=== PATIENT | male | born 1965 | race Caucasian/White ===

== ENCOUNTER 2017-03-12 01:20 | Emergency (ER) | payer SELFPAY ==
--- NOTE | 2017-03-12 02:02 | ERPHSYRPT ---
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 - no change on exam today; brought by law enforcement for clearance today; Timing/Duration: today Associated Symptoms: denies symptoms Allergies/Adverse Reactions: iodine Allergy (Verified 03/08/14 16:06) Shellfish *RETIRED-11/14/12 [Shellfish] Allergy (Verified 03/08/14 16:06) Home Medications: Lorazepam [Ativan] 2 mg PO TIDPRN PRN 08/05/12 [History] Pantoprazole 20 mg [Protonix 20MG Tablet] 20 mg PO DAILY 09/15/12 [History] Famotidine 20 mg [Pepcid 20 MG] 20 mg PO HS 01/01/14 [History] Fluoxetine HCl [Prozac] 20 mg PO DAILY 01/01/14 [History] Hx Tetanus, Diphtheria Vaccination/Date Given: Yes Hx Influenza Vaccination/Date Given: Yes Hx Pneumococcal Vaccination/Date Given: Yes - Review of Systems Constitutional: No Fever, No Chills Eyes: No Symptoms Ears, Nose, & Throat: No Symptoms Respiratory: No Cough, No Dyspnea Cardiac: No Chest Pain, No Edema, No Syncope Abdominal/Gastrointestinal: No Abdominal Pain, No Nausea, No Vomiting, No Diarrhea Genitourinary Symptoms: No Dysuria Musculoskeletal: No Back Pain, No Neck Pain Skin: No Rash Neurological: No Dizziness, No Focal Weakness, No Sensory Changes Psychological: No Symptoms Endocrine: No Symptoms All Other Systems: Reviewed and Negative - Past Medical History Pertinent Past Medical History: Yes Neurological History: No Pertinent History ENT History: No Pertinent History Cardiac History: No Pertinent History Respiratory History: No Pertinent History Endocrine Medical History: No Pertinent History Musculoskeletal History: No Pertinent History GI Medical History: GI Bleed History: No Pertinent History Psycho-Social History: Anxiety, Depression Male Reproductive Disorders: No Pertinent History Other Medical History: 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 - Past Surgical History Past Surgical History: Yes Neuro Surgical History: No Pertinent History Cardiac: No Pertinent History Respiratory: No Pertinent History Gastrointestinal: Cholecystectomy Genitourinary: No Pertinent History Musculoskeletal: No Pertinent History Male Surgical History: No Pertinent History Other Surgical History: knee scope; recent trach placement from ulcers noted on throat - Social History Smoking Status: Never smoker Exposure to second hand smoke: No Drug Use: none Patient Lives Alone: Yes - Nursing Vital Signs Nursing Vital Signs: Initial Vital Signs Temperature 98 F 03/12/17 02:18 Pulse Rate 100 H 03/12/17 02:18 Respiratory Rate 16 03/12/17 02:18 Blood Pressure 140/86 03/12/17 02:18 O2 Sat by Pulse Oximetry 98 03/12/17 02:18 Pain Scale Pain Intensity 0 - Physical Exam General Appearance: no apparent distress, alert Eye Exam: PERRL/EOMI, eyes nml inspection Ears, Nose, Throat Exam: normal ENT inspection, TMs normal, pharynx normal, moist mucous membranes Neck Exam: normal inspection, non-tender, supple, full range of motion Respiratory Exam: normal breath sounds, lungs clear, No respiratory distress Cardiovascular Exam: regular rate/rhythm, normal heart sounds, normal peripheral pulses Gastrointestinal/Abdomen Exam: soft, normal bowel sounds, No tenderness, No mass Rectal Exam: normal exam, normal rectal tone Back Exam: normal inspection, normal range of motion, No CVA tenderness, No vertebral tenderness Extremity Exam: normal inspection, normal range of motion, pelvis stable Neurologic Exam: alert, oriented x 3, cooperative, normal mood/affect, nml cerebellar function, nml station & gait, sensation nml, motor deficits (old residual left sided weakness) Skin Exam: normal color, warm, dry, No rash Lymphatic Exam: No adenopathy SpO2 Interpretation: normal Oxygen Delivery: Room Air - Course Nursing assessment & vital signs reviewed: Yes EKG Interpreted by Me: Sinus Rhythm, Non-specific ST Changes Ordered Tests: Active Orders 24 hr Category Date Time Status Clean Catch Urine Specimen STAT Care 03/12/17 02:26 Active EKG-ER Only STAT Care 03/12/17 01:50 Active ACETAMINOPHEN Stat Lab 03/12/17 02:10 Completed CBC W DIFF Stat Lab 03/12/17 02:10 Completed CMP Stat Lab 03/12/17 02:10 Completed ETHYL ALCOHOL Stat Lab 03/12/17 02:10 Completed Occult Blood,Stool Other Stat Lab 03/12/17 03:13 Ordered SALICYLATE Stat Lab 03/12/17 02:10 Completed TROPONIN Q3H Lab 03/12/17 02:10 Completed TROPONIN Q3H Lab 03/12/17 05:00 Ordered TROPONIN Q3H Lab 03/12/17 08:00 Ordered TROPONIN Q3H Lab 03/12/17 11:00 Ordered TROPONIN Q3H Lab 03/12/17 14:00 Ordered UA W/RFX UR CULTURE Stat Lab 03/12/17 02:00 Completed Urine Triage Profile Stat Lab 03/12/17 02:00 Completed Lab/Rad Data: Laboratory Result Diagrams 03/12/17 02:10 03/12/17 02:10 Laboratory Results 03/12/17 03/12/17 03/12/17 Range/Units 02:10 02:10 02:10 WBC (4.0-10.5) K/mm3 RBC (4.1-5.6) M/mm3 Hgb (12.5-18.0) gm/dl Hct (42-50) % MCV (78-100) fl MCH (26-32) pg MCHC (32-36) g/dl RDW (11.5-14.0) % Plt Count (150-450) K/mm3 MPV (6-9.5) fl Gran % (36.0-66.0) % Lymphocytes % (24.0-44.0) % Monocytes % (0.0-12.0) % Eosinophils % (0.00-5.0) % Basophils % (0.0-0.4) % Basophils # (0-0.4) Sodium (136-145) mEq/L Potassium (3.5-5.1) mEq/L Chloride (98-107) mEq/L Carbon Dioxide (21-32) mEq/L Anion Gap (5-15) MEQ/L BUN (9-20) mg/dL Creatinine (0.55-1.30) mg/dl Estimated GFR ML/MIN Glucose (70-110) MG/DL Calcium (8.5-10.1) mg/dL Total Bilirubin (0.2-1.0) mg/dL AST (15-37) U/L ALT (12-78) U/L Alkaline Phosphatase (46-116) U/L Troponin I < 0.017 (0.000-0.056) ng/ml Serum Total Protein (6.4-8.2) gm/dL Albumin (3.4-5.0) g/dL Ur Collection Type Urine Color (YELLOW) Urine Appearance (CLEAR) Urine pH (5-6) Ur Specific [place] (1.005-1.025) Urine Protein (Negative) Urine Ketones (NEGATIVE) Urine Blood (0-5) Steve/ul Urine Nitrite (NEGATIVE) Urine Bilirubin (NEGATIVE) Urine Urobilinogen (0-1) mg/dL Ur Leukocyte Esterase (NEGATIVE) Urine Glucose (NEGATIVE) mg/dL Salicylates < 2.8 L (2.8-20.0) mg/dl Urine Opiates Level (NEGATIVE) Ur Methadone (NEGATIVE) Acetaminophen < 2.0 L (10-30) ug/ml Urine Barbiturates (NEGATIVE) Ur Phencyclidine (PCP) (NEGATIVE) Urine Amphetamine (NEGATIVE) U Benzodiazepine Level (NEGATIVE) Urine Cocaine (NEGATIVE) Urine Marijuana (THC) (NEGATIVE) Ethyl Alcohol (0.00-0.01) % Specimen Received 03/12/17 03/12/17 03/12/17 Range/Units 02:10 02:10 02:10 WBC 3.7 L (4.0-10.5) K/mm3 RBC 3.70 L (4.1-5.6) M/mm3 Hgb 10.2 L (12.5-18.0) gm/dl Hct 32.1 L (42-50) % MCV 86.8 (78-100) fl MCH 27.5 (26-32) pg MCHC 31.8 L (32-36) g/dl RDW 19.7 H (11.5-14.0) % Plt Count 103 L (150-450) K/mm3 MPV 11.7 H (6-9.5) fl Gran % 46.5 (36.0-66.0) % Lymphocytes % 28.8 (24.0-44.0) % Monocytes % 19.6 H (0.0-12.0) % Eosinophils % 4.3 (0.00-5.0) % Basophils % 0.8 (0.0-0.4) % Basophils # 0.03 (0-0.4) Sodium 141 (136-145) mEq/L Potassium 3.8 (3.5-5.1) mEq/L Chloride 101 (98-107) mEq/L Carbon Dioxide 25.9 (21-32) mEq/L Anion Gap 17.4 H (5-15) MEQ/L BUN 4 L (9-20) mg/dL Creatinine 0.76 (0.55-1.30) mg/dl Estimated GFR > 60 ML/MIN Glucose 106 (70-110) MG/DL Calcium 8.1 L (8.5-10.1) mg/dL Total Bilirubin 0.40 (0.2-1.0) mg/dL AST 145 H (15-37) U/L ALT 57 (12-78) U/L Alkaline Phosphatase 120 H (46-116) U/L Troponin I (0.000-0.056) ng/ml Serum Total Protein 6.9 (6.4-8.2) gm/dL Albumin 3.4 (3.4-5.0) g/dL Ur Collection Type Urine Color (YELLOW) Urine Appearance (CLEAR) Urine pH (5-6) Ur Specific [place] (1.005-1.025) Urine Protein (Negative) Urine Ketones (NEGATIVE) Urine Blood (0-5) Steve/ul Urine Nitrite (NEGATIVE) Urine Bilirubin (NEGATIVE) Urine Urobilinogen (0-1) mg/dL Ur Leukocyte Esterase (NEGATIVE) Urine Glucose (NEGATIVE) mg/dL Salicylates (2.8-20.0) mg/dl Urine Opiates Level (NEGATIVE) Ur Methadone (NEGATIVE) Acetaminophen (10-30) ug/ml Urine Barbiturates (NEGATIVE) Ur Phencyclidine (PCP) (NEGATIVE) Urine Amphetamine (NEGATIVE) U Benzodiazepine Level (NEGATIVE) Urine Cocaine (NEGATIVE) Urine Marijuana (THC) (NEGATIVE) Ethyl Alcohol 0.384 H* (0.00-0.01) % Specimen Received 03/12/17 03/12/17 Range/Units 02:00 02:00 WBC (4.0-10.5) K/mm3 RBC (4.1-5.6) M/mm3 Hgb (12.5-18.0) gm/dl Hct (42-50) % MCV (78-100) fl MCH (26-32) pg MCHC (32-36) g/dl RDW (11.5-14.0) % Plt Count (150-450) K/mm3 MPV (6-9.5) fl Gran % (36.0-66.0) % Lymphocytes % (24.0-44.0) % Monocytes % (0.0-12.0) % Eosinophils % (0.00-5.0) % Basophils % (0.0-0.4) % Basophils # (0-0.4) Sodium (136-145) mEq/L Potassium (3.5-5.1) mEq/L Chloride (98-107) mEq/L Carbon Dioxide (21-32) mEq/L Anion Gap (5-15) MEQ/L BUN (9-20) mg/dL Creatinine (0.55-1.30) mg/dl Estimated GFR ML/MIN Glucose (70-110) MG/DL Calcium (8.5-10.1) mg/dL Total Bilirubin (0.2-1.0) mg/dL AST (15-37) U/L ALT (12-78) U/L Alkaline Phosphatase (46-116) U/L Troponin I (0.000-0.056) ng/ml Serum Total Protein (6.4-8.2) gm/dL Albumin (3.4-5.0) g/dL Ur Collection Type CLEAN CATCH Urine Color YELLOW (YELLOW) Urine Appearance CLEAR (CLEAR) Urine pH 5.5 (5-6) Ur Specific [place] 1.005 (1.005-1.025) Urine Protein NEGATIVE (Negative) Urine Ketones NEGATIVE (NEGATIVE) Urine Blood NEGATIVE (0-5) Steve/ul Urine Nitrite NEGATIVE (NEGATIVE) Urine Bilirubin NEGATIVE (NEGATIVE) Urine Urobilinogen NORMAL (0-1) mg/dL Ur Leukocyte Esterase NEGATIVE (NEGATIVE) Urine Glucose NEGATIVE (NEGATIVE) mg/dL Salicylates (2.8-20.0) mg/dl Urine Opiates Level NEG. (NEGATIVE) Ur Methadone NEG. (NEGATIVE) Acetaminophen (10-30) ug/ml Urine Barbiturates NEG. (NEGATIVE) Ur Phencyclidine (PCP) NEG. (NEGATIVE) Urine Amphetamine NEG. (NEGATIVE) U Benzodiazepine Level NEG. (NEGATIVE) Urine Cocaine NEG. (NEGATIVE) Urine Marijuana (THC) NEG. (NEGATIVE) Ethyl Alcohol (0.00-0.01) % Specimen Received 03/12/17:0200 - Progress Progress: improved, re-examined Progress Note: 03/12/17 03:09 pt states hbg is usually around 10. Counseled pt/family regarding: lab results, diagnosis, need for follow-up - Departure Time of Disposition: 03:14 Departure Disposition: Correction/Detention Clinical Impression: Elevated alanine aminotransferase (ALT) level, residuals from CVA stable , Chronic anemia Condition: Good Critical Care Time: No Referrals: GEETA TURNER [Primary Care Provider] - Instructions: Alcohol Abuse and Alcoholism Additional Instructions: followup with your Dr for elevated liver enzyme tests and low blood count, and elevated BP/
[2017-03-12 02:19] LABS: BASOPHIL % 0.8 % (0.0-0.4); Eosinophil % 4.3 % (0.00-5.0); Granulocytes % 46.5 % (36.0-66.0); Lymphocytes % 28.8 % (24.0-44.0); Mean Cell Volume 86.8 fl (78-100); Mean Corpuscular Hemoglobin 27.5 pg (26-32); Mean Platelet Volume 11.7 fl (6-9.5); Monocytes % 19.6 % (0.0-12.0); Platelet Count 103 K/mm3 (150-450); Red Cell Distribution Width 19.7 % (11.5-14.0); White Blood Count 3.7 K/mm3 (4.0-10.5)
[2017-03-12 02:23] LABS: ADD URINE CULTURE? NO (NO); Bilirubin NEGATIVE (NEGATIVE); Blood NEGATIVE Ery/ul (0-5); COMPLETE URINE MICROSCOPIC? NO; Collection Type CLEAN CATCH; Glucose NEGATIVE (NEGATIVE); Leukocyte Esterase NEGATIVE (NEGATIVE)
[2017-03-12 02:24] VITALS: O2SAT 98
[2017-03-12 02:39] LABS: ALBUMIN 3.4 g/dL (3.4-5.0); ALKALINE PHOSPHATASE 120 U/L (46-116); ANION GAP 17.4 MEQ/L (5-15); BLOOD UREA NITROGEN 4 mg/dL (9-20); CHLORIDE 101 mEq/L (98-107); Carbon Dioxide 25.9 mEq/L (21-32); Glucose 106 MG/DL (70-110); Potassium 3.8 mEq/L (3.5-5.1); SGOT/AST 145 U/L (15-37); SGPT/ALT 57 U/L (12-78); SODIUM 141 mEq/L (136-145); Total Protein 6.9 gm/dL (6.4-8.2)
[2017-03-12 03:30] VITALS: BP 128/78; PULSE 92
== END 2017-03-12 03:31 | disposition home or self-care (01) ==
LOC: ED 01:20
DX: R74.0 Nonspecific elevation of levels of transaminase and lactic acid dehydrogenase [LDH] (principal); I63.8 Other cerebral infarction; D64.89 Other specified anemias
CPT/HCPCS: 36415; 80053; 80307; 81002; 82272; 84484; 85025; 93005; 99283; G0481

== ENCOUNTER 2017-08-25 05:56 | Day surgery (SDC) | payer OTHER ==
[2017-08-25] MEDS ORDERED: DIPRIVAN 200 MG/20 ML IV ONE (05:57)
[2017-08-25] MEDS ORDERED: Versed 2 MG/2 ML Injection IV ONE (05:57)
[2017-08-25] MEDS ORDERED: Pepcid 20 MG VIAL IV ONE ×2 (06:28→06:32)
[2017-08-25] MEDS ORDERED: Reglan 10 MG/2 ML ONE (06:28)
[2017-08-25] MEDS ORDERED: Lactated Ringers 1,000 ML IV ONE (06:28)
[2017-08-25] MEDS ORDERED: Reglan 10 MG/2 ML IV ONE (06:32)
[2017-08-25 06:39] VITALS: O2SAT 98
[2017-08-25] MEDS ORDERED: Lactated Ringers 1,000 ML IV SCH (07:00)
[2017-08-25 09:30] VITALS: BP 131/72; PULSE 88
--- NOTE | 2017-08-25 11:41 | OP ---
SURGERY DATE/TIME: 08/25/2017 0725 PREOPERATIVE DIAGNOSIS: Low abdominal pain and rectal bleeding. Family history of colon cancer. POSTOPERATIVE DIAGNOSIS: Rectal cancer, multiple polyps to the left side of the colon. PROCEDURE: Colonoscopy with biopsy and tattooing of the colon. SURGEON: Dr. Chapman. ANESTHESIA: MAC. Medications given by anesthesia department. HISTORY: The patient is a 52 year-old white male patient who reports for the past several months he has been having problems with rectal bleeding that has gotten worse over time. He reports there has been some abdominal pain in low area and pain with bowel movements. He also reports that his father had colon polyps and his mother had colon cancer. The patient was felt the need to have endoscopic evaluation. He was appraised of the risks of the procedure including the risk of perforation, phlebitis, untoward reaction to medication, bleeding and missed lesions. The patient verbalized his understanding and desired to have the procedure performed. DESCRIPTION OF PROCEDURE: The patient was given the medications by the anesthesia department. He had continuous pulse oximetry, ECG monitoring, intermittent blood pressure monitoring and tidal CO2 monitoring during the examination. He was placed in the left lateral decubitus position. A digital rectal examination was performed and revealed a firm, ulcerated mass which was palpable approximately right at the anal verge measuring approximately 5 cm in diameter. The anal sphincter tone was felt to be normal. The flexible Olympus pediatric colonoscope was used to intubate the rectum. A view of the colon was developed sequentially to the cecum. Upon insertion and withdrawal there was noted multiple very large polyps throughout the left side of the colon. We observed carefully the colon beyond this area and we tattooed the area of the most proximal polyp. The area above that being clear to the cecum, the area below having multiple polyps as mentioned pedunculated and very large in nature. Biopsies were obtained from the area that was felt to be rectal cancer. The other polyps appeared to be probable villous adenomas and it was felt that the patient would likely need surgery, in fact probably a hemicolectomy of the left side. We therefore did not progress to try to remove the rest of the very large polyps. The scope was removed from the patient who tolerated the procedure well and was sent back to OP recovery in good condition. Bleeding was noted to be minimal.
== END 2017-08-25 09:57 | disposition home or self-care (01) ==
LOC: SDC 05:56
PROVIDERS: ATTEND Family Medicine
PROC: 0DBG8ZX Excision of Left Large Intestine, Via Natural or Artificial Opening Endoscopic, Diagnostic (ICD-10-PCS; principal; 2017-08-25)
PROC: 3E0H8GC Introduction of Other Therapeutic Substance into Lower GI, Via Natural or Artificial Opening Endoscopic (ICD-10-PCS; 2017-08-25)
DX: C20 Malignant neoplasm of rectum (principal); K62.5 Hemorrhage of anus and rectum; Z80.0 Family history of malignant neoplasm of digestive organs; K63.5 Polyp of colon
CPT/HCPCS: 00812; 88305; J2250; J2704

== ENCOUNTER 2017-10-05 12:27 | Day surgery (SDC) | payer OTHER ==
--- NOTE | 2017-10-03 15:44 | HP ---
DATE OF SURGERY: 10/05/2017 ADMISSION DIAGNOSIS: Colon with polyp. ANTICIPATED PROCEDURE: Colonoscopy with polypectomy. HISTORY OF PRESENT ILLNESS: The patient had rectal colon cancer recently diagnosed. He is requiring evaluation for definitive treatment. He presents for colonoscopic examination. PAST MEDICAL HISTORY: ALLERGIES: SHELLFISH. MEDICATIONS: Prozac, Ativan. PAST SURGICAL HISTORY: Knee surgery. Cholecystectomy. Esophageal surgery. Tracheal surgery. SOCIAL HISTORY: Smokeless tobacco. FAMILY HISTORY: Negative. REVIEW OF SYSTEMS: Anemia, cancer. PHYSICAL EXAMINATION: VITAL SIGNS: Normal. CHEST: Clear. COR: Regular. IMPRESSION: The patient has seen Dr. Bobby, has seen Dr. Chowdhury, seen Dr. Rodarte. Presents for colonoscopy.
[~2017-10-05 12:27] MED LIST: CEFAZOLIN 2 GM-D5W BAG** 2 GM/50 ML ML IV ONE; Lactated Ringers 1,000 ML IV ONE; Lactated Ringers 1,000 ML IV SCH; XYLOCAINE 1% HCL 20 ML MDV ONE
[2017-10-05] MEDS ORDERED: SUBLIMAZE 100 MCG/2 ML IV ONE (12:28)
[2017-10-05] MEDS ORDERED: Versed 2 MG/2 ML Injection IV ONE (12:28)
[2017-10-05] MEDS ORDERED: DIPRIVAN 200 MG/20 ML IV ONE (12:28)
[2017-10-05] MEDS ORDERED: CEFAZOLIN 2 GM-D5W BAG** 2 GM/50 ML ML IV SCH (12:30)
[2017-10-05 18:10] VITALS: PULSE 91; O2SAT 100
[2017-10-05 18:35] VITALS: BP 155/89
--- NOTE | 2017-10-06 08:17 | OP ---
SURGERY DATE/TIME: 10/05/2017 1601 PREOPERATIVE DIAGNOSIS: Rectal cancer. POSTOPERATIVE DIAGNOSIS: Rectal cancer. PROCEDURES: 1) Tunnel port fluoroscopic C-arm guidance for access for chemotherapy for rectal cancer. 2) Snare hot polypectomy x2 of the most distal two large polyps in the sigmoid. SURGEON: Aleksandar Doe M.D. ANESTHESIA: MAC. COMPLICATIONS: None. CONDITION: Stable. INDICATION: A patient requiring a port. It is also desirable to see this lesion prior to intervention. DESCRIPTION OF PROCEDURE: He was taken to surgery. General anesthetic. Routine prep and drape. Venipuncture obtained left subclavian. Wire was passed. Catheter passed 23 cm. Good aspiration. Low pressure venous blood. Flushed with heparinized saline. Secured with 3-0 Prolene, 3-0 Vicryl, 4-0 Vicryl, Steri-Strips. The tip is in the superior vena cava atrial junction. No pneumothorax. The tumor can be palpated on fingertip and on exam the rectal tumor is anteriorly. It was 6 x 6 cm circular occupying the anterior half of the rectal wall. It came over the back side of the prostate. It was elevated 360 degrees on the outside but then it was dimpled in the mid portion. The elevated ridge actually butted up into the hemorrhoidal tissue. Up above in the sigmoid, two large polyps were taken with hot snare. There were additional polyps but these were not taken at this time. At least the larger two nearly obstructing polyps were removed. The patient tolerated the procedure satisfactorily.
--- NOTE | 2017-10-06 09:04 | XRAY ---
1 second fluoroscopy time in surgery for port placement.
--- NOTE | 2017-10-06 13:26 | XRAY ---
Indication: Port placement. Intraoperative fluoroscopy was provided for one second. Single digital spot image submitted for interpretation demonstrates left sided Port-A-Cath with tip projecting over the proximal SVC. Correlate with intraoperative findings/report.
== END 2017-10-05 18:38 | disposition home or self-care (01) ==
LOC: SDC 12:27
PROVIDERS: ATTEND Surgery
PROC: 05H633Z Insertion of Infusion Device into Left Subclavian Vein, Percutaneous Approach (ICD-10-PCS; principal; 2017-10-05)
PROC: 0DBN8ZX Excision of Sigmoid Colon, Via Natural or Artificial Opening Endoscopic, Diagnostic (ICD-10-PCS; 2017-10-05)
DX: C20 Malignant neoplasm of rectum (principal); D64.9 Anemia, unspecified
CPT/HCPCS: 71045; 77001; 88305; C1788; J0690; J1642; J2250; J2704; J3010

== ENCOUNTER 2017-12-28 09:53 | Day surgery (SDC) | payer OTHER ==
--- NOTE | 2017-11-22 09:30 | HP ---
AMENDED REPORT: DATE OF SURGERY: 11/23/2017 ADMISSION DIAGNOSIS: Small polyps. ANTICIPATED PROCEDURE: Colonoscopy with polypectomy. HISTORY OF PRESENT ILLNESS: The patient has multiple polyps. He presents for colonoscopy. He does have rectal cancer. PAST MEDICAL HISTORY: ALLERGIES: SHELLFISH. MEDICATIONS: Prozac. PAST SURGICAL HISTORY: Knee surgery, gallbladder surgery, esophageal, trachea. SOCIAL HISTORY: Half pack per day. ETOH negative. FAMILY HISTORY: Negative. PHYSICAL EXAMINATION: VITAL SIGNS: Normal. CHEST: Clear. COR: Regular. ABDOMEN: No palpable organomegaly or mass. IMPRESSION: Colonoscopy.
--- NOTE | 2017-12-27 15:18 | HP ---
DATE OF SURGERY: 12/28/2017 ANTICIPATED PROCEDURE: Colonoscopy. HISTORY OF PRESENT ILLNESS: The patient had diagnosis of rectal cancer. He has multiple polyps. He had one very large polyp removed. 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 He has had preoperative chemo and radiation. He presents for re-evaluation after treatment. He had a complicated medical course. 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 Aden So[facility] at [facility]. He also had pancreatitis, gastritis, gastroesophageal reflux disease. He has a family history of rectal cancer. PLAN: Colonoscopy, additional polypectomy and re-evaluation. PAST MEDICAL HISTORY: ALLERGIES: SHELLFISH. MEDICATIONS: Prozac, Ativan. PAST SURGICAL HISTORY: Knee surgery, gallbladder surgery, esophageal tracheal. SOCIAL HISTORY: Smokeless tobacco. ETOH occasional. FAMILY HISTORY: Colon cancer. PHYSICAL EXAMINATION: VITAL SIGNS: Normal. CHEST: Clear. COR: Regular. IMPRESSION: 1) Rectal cancer with initial treatment requiring re-evaluation. 2) Multiple polyps. 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 PLAN: Colonoscopy.
[~2017-12-28 09:53] MED LIST changes: -CEFAZOLIN 2 GM-D5W BAG** 2 GM/50 ML ML IV ONE; -XYLOCAINE 1% HCL 20 ML MDV ONE
[2017-12-28] MEDS ORDERED: SUBLIMAZE 100 MCG/2 ML IV ONE (09:54)
[2017-12-28] MEDS ORDERED: DIPRIVAN 200 MG/20 ML IV ONE (09:54)
[2017-12-28] MEDS ORDERED: Versed 2 MG/2 ML Injection IV ONE (09:54)
--- NOTE | 2017-12-28 13:08 | OP ---
SURGERY DATE/TIME: 12/28/2017 1128 PREOPERATIVE DIAGNOSIS: The patient has completed radiation and chemotherapy for rectal cancer. He presents for re-evaluation. PROCEDURE: Colonoscopy. SURGEON: Aleksandar Doe M.D. ANESTHESIA: MAC. DESCRIPTION OF PROCEDURE: He is taken to endoscopy. Left lateral decubitus position. Anal digital examination there was still palpable induration, firmness possible tumor anteriorly between the lower edge of prostate and the anus. The scope is introduced. There was some ulcerated 2 cm area. There were two nodular components off to the side. These were taken and sent as low rectal. There were three major polyps up above this that were taken and sent specifically as designated. The scope advanced over to the cecum. The prep was poor. There was a large polypoid lesion at the base of the cecum that was not sampled or biopsied as the prep was extremely poor over there. There were a few smaller ones coming back to the right colon. As noted there was a large one in the distal sigmoid, upper rectum, mid rectum and these were sent separately. IMPRESSION: There are at least two problems. The patient has had a large rectal cancer that has responded very substantially to chemo and radiation. It is still quite low. It still has a burrowing ulceration left. Anastomosis would basically be to the internal-external hemorrhoidal area and then the question what material to bring down as he has a harrell-colonic polyposis syndrome. We will see what these additional polyps show. We will talk to the patient. Probably the most complete therapy would be an ileostomy with total proctocolectomy but he has had major health issues. I am not sure he is absolutely going to opt for this.
[2017-12-28] MEDS ORDERED: Sodium Chloride 0.9% 10 ML FLUSH Syringe PORT FLUSH PRN (13:20)
[2017-12-28 13:24] VITALS: BP 127/85; PULSE 77; O2SAT 95
== END 2017-12-28 13:45 | disposition home or self-care (01) ==
LOC: SDC 09:53
PROVIDERS: ATTEND Surgery
DX: C20 Malignant neoplasm of rectum (principal); Z08 Encounter for follow-up examination after completed treatment for malignant neoplasm; Z86.010 Personal history of colon polyps; Z80.0 Family history of malignant neoplasm of digestive organs; Z79.899 Other long term (current) drug therapy; K21.9 Gastro-esophageal reflux disease without esophagitis
CPT/HCPCS: 88305; J1642; J2250; J2704; J3010

== ENCOUNTER 2018-02-15 10:30 | Day surgery (SDC) | payer OTHER ==
--- NOTE | 2018-02-12 11:06 | HP ---
DATE OF SURGERY: 02/15/2018 ANTICIPATED PROCEDURE: Colonoscopy. HISTORY OF PRESENT ILLNESS: This is a 53 year-old male for several months having problems with rectal bleeding getting worse. His mother had colon polyps and colon cancer. He had a colonoscopic examination concerning for rectal cancer with multiple colon polyps. He was referred to Dr. Rodarte with moderately differentiated adenocarcinoma of the rectum. He had endoscopic examination by myself. He has had large polyps removed. He presents for follow up exam post-chemotherapy and radiation therapy. There are at least two major problems going on with low rectal cancer and then also the multiple large polyps in the upper colon. He presents for re-evaluation. PAST MEDICAL HISTORY: ALLERGIES: IODINE, MORPHINE. SHELLFISH. MEDICATIONS: Prozac, Prilosec. PAST SURGICAL HISTORY: Knee surgery, cholecystectomy, esophageal surgery, tracheal surgery. He has had a previous trach. SOCIAL HISTORY: One pack per day. PHYSICAL EXAMINATION: VITAL SIGNS: Normal. NECK: He has had a previous trach. CHEST: Clear. COR: Regular. ABDOMEN: No palpable organomegaly or mass. IMPRESSION: Follow up for re-examination for consideration of operative therapy.
[~2018-02-15 10:30] MED LIST changes: -Lactated Ringers 1,000 ML IV ONE
[2018-02-15] MEDS ORDERED: DIPRIVAN 200 MG/20 ML IV ONE (10:31)
[2018-02-15] MEDS ORDERED: Ketamine HCl 50 MG/ML IV ONE (10:31)
[2018-02-15] MEDS ORDERED: Lactated Ringers 1,000 ML IV ONE ×2 (10:35→14:05)
[2018-02-15] MEDS: Sodium Chloride 0.9% 10 ML FLUSH Syringe PORT FLUSH PRN ×2 (11:15→14:20)
--- NOTE | 2018-02-15 14:07 | OP ---
SURGERY DATE/TIME: 02/15/2018 1234 PREOPERATIVE DIAGNOSIS: Multiple polyps and rectal cancer. POSTOPERATIVE DIAGNOSIS: Multiple polyps and rectal cancer. PROCEDURES: 1) Colonoscopy complete to cecum. 2) Hot snare large partial polypectomy hepatic flexure lesion with at least 4 cm removed and probably 2 cm residual. 3) Hot snare polypectomy at 50 cm of a 2.5 cm polyp. 4) Hot biopsy forceps resection of five polyps (two in the sigmoid and three up in the descending colon). 5) Additionally blue dye tattoo of the largest polyp area. 6) Additionally two cold biopsies of the rectal area. SURGEON: Aleksandar Doe M.D. ANESTHESIA: MAC. COMPLICATIONS: None. CONDITION: Stable. INDICATION: The patient has multiple polyposis syndrome. He had rectal cancer. He has received chemotherapy and radiation. We have done several scopes on him. We have been making some progress. DESCRIPTION OF PROCEDURE: He is taken to endoscopy. MAC sedation provided. Two biopsies of the rectal area. The rectal area is grossly satisfactory. There is some induration below the prostate. There had been some ulceration and this is scarred over. There is just a little bit of almost polypoid elevation that was biopsied and right in the heart of the firm induration was biopsied. Each was sent as rectal cold biopsy x2 rectum. The scope advanced to the cecum. Coming back from the cecum, ileocecal valve, ascending is satisfactory. At hepatic flexure there was a large polyp probably 6 cm with 4 cm resected with a hot snare. The base looked satisfactory. It was tattooed. It was not felt prudent to try to take the rest of this today. Coming over to the splenic flexure there were three - 1 cm polyps taken in one jar. There was a 2 cm polyp taken with hot snare in one jar. Coming down to the sigmoid there was three - 1 cm polyps taken and placed in one jar. The patient tolerated the procedure satisfactorily. The patient was very adamant about not wanting to have a proctectomy. It has been a little unclear what to do for this gentleman so far. He definitely had a rectal cancer initially. The last time it was still substantially irritated and this time it certainly is much better. Nutrition Intern biopsies were taken. There was also concern about residual colon and any segment that might possibly be pulled down. We have been taking large polyps from this gentleman. We are much closer to being grossly clean at this time. We will look at his follow up CT scan and discuss options with him in 12 days in the office.
[2018-02-15 14:28] VITALS: BP 145/99; PULSE 65; O2SAT 100
== END 2018-02-15 14:20 | disposition home or self-care (01) ==
LOC: SDC 10:30
PROVIDERS: ATTEND Surgery
DX: K63.5 Polyp of colon (principal); C20 Malignant neoplasm of rectum; Z80.0 Family history of malignant neoplasm of digestive organs; Z79.899 Other long term (current) drug therapy; Z72.0 Tobacco use
CPT/HCPCS: 88305; 94250; J1642; J2704

== ENCOUNTER 2018-04-05 07:27 | Day surgery (SDC) | payer OTHER ==
[2018-04-05] MEDS ORDERED: SUBLIMAZE 100 MCG/2 ML IV ONE (07:28)
[2018-04-05] MEDS ORDERED: DIPRIVAN 200 MG/20 ML IV ONE (07:28)
[2018-04-05] MEDS: Lactated Ringers 1,000 ML IV SCH (07:57)
[2018-04-05 12:06] VITALS: O2SAT 97
[2018-04-05 12:07] VITALS: BP 131/93; PULSE 62
[2018-04-05] MEDS: Sodium Chloride 0.9% 10 ML FLUSH Syringe PORT FLUSH PRN (12:07)
--- NOTE | 2018-04-06 16:06 | OP ---
SURGERY DATE: 04/05/18 SURGERY TIME: 954 PREOPERATIVE DIAGNOSIS: 1. FOLLOW-UP WORK ON MULTIPLE POLYPOSUS OF THE COLON AND RECTAL CANCER. POSTOPERATIVE DIAGNOSIS: 1. FOLLOW-UP WORK ON MULTIPLE POLYPOSUS OF THE COLON AND RECTAL CANCER. PROCEDURE: 1. Colonoscopy complete to cecum. 2. A 1 hot snare polypectomy X 2. 3. A hot snare major polypectomy of a 5 cm multilobulated polyp with the hot snare and subsequently marked with tattoo stain at the splenic flexure. 4. Multiple rectal biopsies of the residual irritated probable rectal cancer site in the rectum. SURGEON: Aleksandar Doe M.D. ANESTHESIA: MAC. COMPLICATIONS: None. CONDITION: Stable. FINDINGS: There is 3.5 cm between the anus and the irritation in the anorectum. It is much worse anteriorly. About 7 cm up and above is satisfactory. OPERATIVE PROCEDURE: The above stated condition was noted and found. The scope was advanced to the cecum. There were 2 small polyps that were taken and not retrieved of no significance. Larger sessile multilobulated lesion in the splenic flexure was taken in 3 pieces. They were all retrieved in a bag and it was then subsequently tattooed. Then, 4 biopsies of the rectum were obtained. At this time, the patient has a grossly clear colon above the rectum. He could have either malignancy or residual at the splenic flexure site, but this colon has been so markedly improved here over the last 3 or 4 settings. The rectal site is irritated. It is concerning. It is very close to the anus. We will see what these results show and at this time, it certainly seems to be time to establish a definitive treatment path.
== END 2018-04-05 12:13 | disposition home or self-care (01) ==
LOC: SDC 07:27
PROVIDERS: ATTEND Surgery
DX: K63.5 Polyp of colon (principal); Z85.048 Personal history of other malignant neoplasm of rectum, rectosigmoid junction, and anus
CPT/HCPCS: 88305; 94250; J1642; J2704; J3010

== ENCOUNTER 2018-08-02 08:19 | Day surgery (SDC) | payer OTHER ==
[2018-08-02] MEDS ORDERED: Ketamine HCl 50 MG/ML IV ONE (08:20)
[2018-08-02] MEDS ORDERED: DIPRIVAN 200 MG/20 ML IV ONE (08:20)
[2018-08-02] MEDS ORDERED: Lactated Ringers 1,000 ML IV ONE (10:56)
[2018-08-02] MEDS ORDERED: SUBLIMAZE 100 MCG/2 ML ONE (11:28)
[2018-08-02] MEDS ORDERED: Zofran 4 MG/2 ML VIAL ONE (11:31)
--- NOTE | 2018-08-02 13:00 | OP ---
SURGERY DATE/TIME: 08/02/2018 1028 PREOPERATIVE DIAGNOSIS: Follow up polyp. POSTOPERATIVE DIAGNOSIS: PROCEDURE: Multiple polypectomies and complete colonoscopy from ostomy to cecum. SURGEON: Aleksandar Doe M.D. ANESTHESIA: MAC. COMPLICATIONS: None. CONDITION: Stable. INDICATION: A patient requiring re-evaluation. DESCRIPTION OF PROCEDURE: He has two polyps at his ostomy bud. Scope advanced up to the cecum. Base of cecum, ileocecal valve was totally normal. Containers were labeled and submitted as "Ascending", "Hepatic", "Transverse". In the splenic flexure there was a large polyp this was taken down in two or three pieces and the base cauterized additionally. It certainly is slightly concerning polyp and it will require re-evaluation in about three months. There was blue dye about an inch above this polyp site and about an inch below this polyp site in the splenic flexure. Coming back to the ostomy there were two polyps that were taken out with hand-held cautery. It was necessary to secure the larger one which was on the inferior rim with a running locking suture of 3-0 chromic catgut. The patient tolerated the procedure satisfactorily. In summary colonoscopy complete to cecum, hot polypectomy with both snare and biopsy forceps, open polypectomy x2 with suture repair x1. The patient will return back in three months. Biopsies are pending.
[2018-08-02 15:40] VITALS: O2SAT 100
[2018-08-02 15:50] VITALS: BP 120/85; PULSE 81
== END 2018-08-02 12:50 | disposition home or self-care (01) ==
LOC: SDC 08:19
PROVIDERS: ATTEND Surgery
DX: K63.5 Polyp of colon (principal); Z08 Encounter for follow-up examination after completed treatment for malignant neoplasm; Z85.038 Personal history of other malignant neoplasm of large intestine
CPT/HCPCS: 88305; J1642; J2405; J2704; J3010

== ENCOUNTER 2018-11-16 06:06 | Emergency (ER) | payer OTHER ==
--- NOTE | 2018-11-16 06:39 | ERPHSYRPT ---
- History of Present Illness Source: patient Exam Limitations: clinical condition Patient Subjective Stated Complaint: Urinary retention Triage Nursing Assessment: Patient brought into ED per EMS ambulating and transferred self to bed. Patient states he woke up this am in throbbing suprapubic pain 04/02. Patient states the pain started two days ago and he hasn' t been able to urinate for two days, just able to dribble. Patient recently dx with colon cancer and thyroid cancer. Patient's abdomen soft and non-distended with positive BS X 4. Patient does have colonostomy to left lower quad. Patient states he recently had a UTI and finished Azithryomyic a few weeks ago. Timing/Duration: day(s) Activites at Onset: none Quality: fullness, pressure Onset Location: suprapubic Pain Radiation: none Severity of Pain-Max: severe Severity of Pain-Current: severe Modifying Factors: Improves With: urinating Associated Symptoms: other (HESITANCY, DRIPPLING OF URINE) Prior abdominal problems: other (HISTORY URINARY RETENTION) Hx Tetanus, Diphtheria Vaccination/Date Given: Yes Hx Influenza Vaccination/Date Given: Yes Hx Pneumococcal Vaccination/Date Given: Yes Immunizations Up to Date: Yes <KRISTYN GARCIA - Last Filed: 11/16/18 06:41> <HENRI URENA - Last Filed: 11/16/18 11:48> - History of Present Illness Time Seen by Provider: 11/16/18 06:20 Physician History: PATIENT WITH A HISTORY OF COLON, CARCINOMA, TIA'S COMPLAINS OF DIFFICULTY URINATING FOR 3 DAYS ASSOCIATED WITH LOWER MID ABDOMINAL PAIN, DENIES NAUSEA, EMESIS, FEVER, FLANK PAIN. (KRISTYN GARCIA) Allergies/Adverse Reactions: iodine Allergy (Severe, Verified 11/16/18 06:10) Tightness of Throat shellfish derived Allergy (Severe, Verified 11/16/18 06:10) Difficulty Breathing Shellfish *RETIRED-11/14/12 [Shellfish] Allergy (Verified 11/16/18 06:10) Tightness of Throat morphine Adverse Reaction (Verified 11/16/18 06:10) Itching Home Medications: Ferrous Sulfate [Feosol] 325 mg PO DAILY 08/25/17 [History] Fluoxetine HCl 20 mg [Prozac 20 MG] 20 mg PO DAILY 08/25/17 [History] Lorazepam [Ativan] 2 mg PO Q6H PRN PRN 08/25/17 [History] Omeprazole 20 MG [Prilosec 20 mg] 20 mg PO DAILY 08/25/17 [History] Hydrocodone/Acetaminophen [[place] 5-325 Tablet] 1 each PO BIDPRN PRN MDD 6 [History] Magnesium Oxide 400 mg [Mag-Ox 400] 400 mg PO BID 11/27/17 [History] Ondansetron [Zofran Odt] 8 mg PO BID 11/27/17 [History] Tamsulosin HCl 0.4 mg [Flomax 0.4 MG] 0.4 mg PO DAILY 11/27/17 [History] - Past Medical History Pertinent Past Medical History: Yes Neurological History: Stroke ENT History: No Pertinent History Cardiac History: Other Respiratory History: No Pertinent History, Other Endocrine Medical History: Thyroid Cancer Musculoskeletal History: Fractures GI Medical History: Colorectal Cancer, GERD, GI Bleed, Pancreatitis, Other History: No Pertinent History Psycho-Social History: Anxiety, Depression Male Reproductive Disorders: No Pertinent History Other Medical History: 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 Hx of crushed trachea. Hx Cardiac arrest during surgery in 08-05-12. Pt no longer follows up with [facility]. Pt states " my heart stopped because my varicees burst and I bleed out.". recent fracture to left hand due to fall, unsplinted but still swollen and sore. - Past Surgical History Past Surgical History: Yes Neuro Surgical History: No Pertinent History Cardiac: No Pertinent History, Vascular Surgery Respiratory: Other Gastrointestinal: Cholecystectomy, Colon Resection Genitourinary: No Pertinent History Musculoskeletal: No Pertinent History Male Surgical History: No Pertinent History Other Surgical History: Left knee scope; trach placement in 2012 from ulcers noted on throat, states (25 surgeries on throat)[id number]. colon polyp removal , multiple colonoscopies. cvl port placed. colon resection with colostomy december 2017 - Social History Smoking Status: Never smoker Exposure to second hand smoke: No Drug Use: none Patient Lives Alone: Yes <KRISTYN GARCIA - Last Filed: 11/16/18 06:41> - Review of Systems Constitutional: No Fever, No Chills Eyes: No Symptoms Ears, Nose, & Throat: No Symptoms Respiratory: No Cough, No Dyspnea Cardiac: No Chest Pain, No Edema, No Syncope Abdominal/Gastrointestinal: Abdominal Pain, No Nausea, No Vomiting, No Diarrhea Genitourinary Symptoms: Urinary Retention, No Dysuria Musculoskeletal: No Symptoms, No Back Pain, No Neck Pain Skin: No Symptoms, No Rash Neurological: No Dizziness, No Focal Weakness, No Sensory Changes Psychological: No Symptoms Endocrine: No Symptoms All Other Systems: Reviewed and Negative <RADHAKRISTYN - Last Filed: 11/16/18 06:41> - Physical Exam General Appearance: mild distress Eye Exam: PERRL/EOMI Ears, Nose, Throat Exam: normal ENT inspection Neck Exam: normal inspection Respiratory Exam: normal breath sounds Cardiovascular Exam: regular rate/rhythm Gastrointestinal/Abdomen Exam: soft, distention (SUPRAPUBIC DISTENTION UP TO THE LEVEL UMBILICUS) Extremity Exam: normal inspection, normal range of motion Neurologic Exam: alert, oriented x 3, cooperative SpO2: 94 <RADHAKRISTYN - Last Filed: 11/16/18 06:41> - Nursing Vital Signs Nursing Vital Signs: Initial Vital Signs Temperature 98.7 F 11/16/18 06:11 Pulse Rate 127 H 11/16/18 06:11 Respiratory Rate 18 11/16/18 06:11 Blood Pressure 131/78 11/16/18 06:11 O2 Sat by Pulse Oximetry 94 L 11/16/18 06:11 Pain Scale Pain Intensity 7 Ordered Tests: Active Orders 24 hr Category Date Time Status IV Insertion STAT Care 11/16/18 06:34 Active CBC W DIFF Stat Lab 11/16/18 06:34 Completed CMP Stat Lab 11/16/18 06:34 Completed CMP Stat Lab 11/16/18 10:59 Completed ETHYL ALCOHOL Stat Lab 11/16/18 06:39 Completed MAGNESIUM Stat Lab 11/16/18 06:34 Completed MAGNESIUM Stat Lab 11/16/18 10:59 Completed Urinalysis with Microscopy Stat Lab 11/16/18 06:57 Completed Medication Summary Generic Name Dose Route Start Last Admin Trade Name Freq PRN Reason Stop Dose Admin Sodium Chloride 1,000 mls @ 50 mls/hr 11/16/18 07:00 11/16/18 07:14 Sodium Chloride 0.9% 1000 Ml IV 12/16/18 06:59 50 mls/hr .Q20H LYNETTE Administration Magnesium Sulfate/Dextrose 100 mls @ 100 mls/hr 11/16/18 07:45 11/16/18 09:41 Magnesium 1 Gm / 100 Ml D5w IV 11/16/18 09:44 100 mls/hr Q1H LYNETTE Administration Discontinued Medications Generic Name Dose Route Start Last Admin Trade Name Mike PRN Reason Stop Dose Admin Potassium Chloride 20 meq in 100 mls @ 50 mls/hr 11/16/18 06:59 11/16/18 07: 16 Potassium Chloride 20 Meq In Water 100ml IV 11/16/18 08:58 50 mls/hr STAT ONE Administration Potassium Chloride Confirm 11/16/18 07:07 Potassium Chloride 20 Meq In Water 100ml Administered 11/16/18 07:08 Dose 100 mls @ ud IV .STK-MED ONE Lorazepam 1 mg 11/16/18 07:31 11/16/18 07:46 Ativan 2 Mg/1 Ml Vial IV 11/16/18 07:32 1 mg STAT ONE Administration Lorazepam Confirm 11/16/18 07:41 Ativan 2 Mg/1 Ml Vial Administered 11/16/18 07:42 Dose 2 mg .ROUTE .STK-MED ONE Ondansetron HCl 4 mg 11/16/18 07:31 11/16/18 07:46 Zofran 4 Mg/2 Ml Vial IV 11/16/18 07:32 4 mg STAT ONE Administration Ondansetron HCl Confirm 11/16/18 07:40 Zofran 4 Mg/2 Ml Vial Administered 11/16/18 07:41 Dose 4 mg .ROUTE .STK-MED ONE Potassium Chloride 40 meq 11/16/18 06:58 11/16/18 07:12 Klor Con 10 Meq PO 11/16/18 06:59 40 meq STAT ONE Administration Potassium Chloride Confirm 11/16/18 07:07 Klor Con 10 Meq Administered 11/16/18 07:08 Dose 40 meq PO .STK-MED ONE Lab/Rad Data: Laboratory Result Diagrams 11/16/18 06:34 11/16/18 10:59 Laboratory Results 11/16/18 11/16/18 11/16/18 Range/Units 10:59 06:57 06:39 WBC (4.0-10.5) K/mm3 RBC (4.1-5.6) M/mm3 Hgb (12.5-18.0) gm/dl Hct (42-50) % MCV (78-100) fl MCH (26-32) pg MCHC (32-36) g/dl RDW (11.5-14.0) % Plt Count (150-450) K/mm3 MPV (6-9.5) fl Gran % (36.0-66.0) % Eos # (Auto) (0-0.5) Absolute Lymphs (auto) (1.0-4.6) Absolute Monos (auto) (0.0-1.3) Lymphocytes % (24.0-44.0) % Monocytes % (0.0-12.0) % Eosinophils % (0.00-5.0) % Basophils % (0.0-0.4) % Absolute Granulocytes (1.4-6.9) Basophils # (0-0.4) Sodium 140 (137-145) mmol/L Potassium 3.2 L (3.5-5.1) mmol/L Chloride 97 L (98-107) mmol/L Carbon Dioxide 30 (22-30) mmol/L Anion Gap 14.9 (5-15) MEQ/L BUN 3 L (9-20) mg/dL Creatinine 0.58 L (0.66-1.25) mg/dL Estimated GFR > 60.0 ML/MIN Glucose 92 (74-106) mg/dL Calcium 7.7 L (8.4-10.2) mg/dL Magnesium 2.2 (1.6-2.3) mg/dL Total Bilirubin 1.30 (0.2-1.3) mg/dL AST 101 H (17-59) U/L ALT 23 (0-50) U/L Alkaline Phosphatase 282 H (38-126) U/L Serum Total Protein 6.9 (6.3-8.2) g/dL Albumin 2.9 L (3.5-5.0) g/dL Urine Color YELLOW (YELLOW) Urine Appearance CLEAR (CLEAR) Urine pH 6.0 (5-6) Ur Specific [place] 1.005 (1.005-1.025) Urine Protein NEGATIVE (Negative) Urine Ketones NEGATIVE (NEGATIVE) Urine Blood NEGATIVE (0-5) Steve/ul Urine Nitrite NEGATIVE (NEGATIVE) Urine Bilirubin NEGATIVE (NEGATIVE) Urine Urobilinogen NEGATIVE (0-1) mg/dL Ur Leukocyte Esterase NEGATIVE (NEGATIVE) Urine WBC (Auto) NONE (0-5) /HPF Urine RBC (Auto) NONE (0-2) /HPF U Epithel Cells (Auto) NONE (FEW) /HPF Urine Bacteria (Auto) NONE (NEGATIVE) /HPF Urine Glucose NEGATIVE (NEGATIVE) mg/dL Ethyl Alcohol 297 H (0-10) mg/dL 11/16/18 11/16/18 11/16/18 Range/Units 06:34 06:34 06:34 WBC 2.6 L (4.0-10.5) K/mm3 RBC 3.57 L (4.1-5.6) M/mm3 Hgb 12.0 L (12.5-18.0) gm/dl Hct 34.6 L (42-50) % MCV 96.9 (78-100) fl MCH 33.6 H (26-32) pg MCHC 34.7 (32-36) g/dl RDW 13.7 (11.5-14.0) % Plt Count 60 L (150-450) K/mm3 MPV 11.3 H (6-9.5) fl Gran % 62.5 (36.0-66.0) % Eos # (Auto) 0.03 (0-0.5) Absolute Lymphs (auto) 0.57 L (1.0-4.6) Absolute Monos (auto) 0.38 (0.0-1.3) Lymphocytes % 21.6 L (24.0-44.0) % Monocytes % 14.4 H (0.0-12.0) % Eosinophils % 1.1 (0.00-5.0) % Basophils % 0.4 (0.0-0.4) % Absolute Granulocytes 1.65 (1.4-6.9) Basophils # 0.01 (0-0.4) Sodium 138 (137-145) mmol/L Potassium 2.7 L* (3.5-5.1) mmol/L Chloride 93 L (98-107) mmol/L Carbon Dioxide 28 (22-30) mmol/L Anion Gap 20.0 H (5-15) MEQ/L BUN 4 L (9-20) mg/dL Creatinine 0.60 L (0.66-1.25) mg/dL Estimated GFR > 60.0 ML/MIN Glucose 113 H (74-106) mg/dL Calcium 7.8 L (8.4-10.2) mg/dL Magnesium 1.3 L (1.6-2.3) mg/dL Total Bilirubin 1.80 H (0.2-1.3) mg/dL AST 120 H (17-59) U/L ALT 25 (0-50) U/L Alkaline Phosphatase 364 H (38-126) U/L Serum Total Protein 7.8 (6.3-8.2) g/dL Albumin 3.4 L (3.5-5.0) g/dL Urine Color (YELLOW) Urine Appearance (CLEAR) Urine pH (5-6) Ur Specific [place] (1.005-1.025) Urine Protein (Negative) Urine Ketones (NEGATIVE) Urine Blood (0-5) Steve/ul Urine Nitrite (NEGATIVE) Urine Bilirubin (NEGATIVE) Urine Urobilinogen (0-1) mg/dL Ur Leukocyte Esterase (NEGATIVE) Urine WBC (Auto) (0-5) /HPF Urine RBC (Auto) (0-2) /HPF U Epithel Cells (Auto) (FEW) /HPF Urine Bacteria (Auto) (NEGATIVE) /HPF Urine Glucose (NEGATIVE) mg/dL Ethyl Alcohol (0-10) mg/dL <KRISTYN GARCIA - Last Filed: 11/16/18 06:41> - Progress Progress: improved Will see patient in: office Counseled pt/family regarding: need for follow-up <HENRI URENA - Last Filed: 11/16/18 11:48> - Progress Progress Note: 11/16/18 06:47 CHISHOLM CATHETER URINE OUTPUT 700 ML PATIENT CARE ENDORSED TO DR URENA AT 0700 (KRISTYN GARCIA) 11/16/18 11:25 Pt got a rider of KCL 40 meq. He did vomit the oral KCL. Mg 2gr IV were given as well. Pt is improved and repeat K was 3.2. Pt will be fed, and will be d/c to home with chisholm. He should f/u with urology as out pt, and removal of chisholm by urology only. 11/16/18 11:47 pt will be seen opn Monday11/23/18 at 08:30AM by Cecy Meena [employer]. Pt to keep chisholm till then. Avoid ETOH use, and increase PO food and fluids. (HENRI URENA) <KRISTYN GARCIA - Last Filed: 11/16/18 06:41> - Departure Departure Disposition: Home Critical Care Time: No <HENRI URENA - Last Filed: 11/16/18 11:48> - Departure Clinical Impression: Urinary retention due to benign prostatic hyperplasia Condition: Stable Referrals: CHANDRAKANT SCHAFFER [Primary Care Provider] - Additional Instructions: Keep chisholm till seen by Cecy Robledo on 11/23/18Monday, at 08:30AM.
[2018-11-16 06:48] LABS: BASOPHIL % 0.4 % (0.0-0.4); Basophil (Absolute #) 0.01 (0-0.4); Eosinophil % 1.1 % (0.00-5.0); Eosinophil (Absolute #) 0.03 (0-0.5); Granulocyte Absolute (ANC) 1.65 (1.4-6.9); Granulocytes % 62.5 % (36.0-66.0); Hematocrit 34.6 % (42-50); Lymphocyte (Absolute #) 0.57 (1.0-4.6); Lymphocytes % 21.6 % (24.0-44.0); Mean Cell Volume 96.9 fl (78-100); Mean Corpuscular Hemoglobin 33.6 pg (26-32); Mean Corpuscular Hgb Concent. 34.7 g/dl (32-36); Mean Platelet Volume 11.3 fl (6-9.5); Monocyte (Absolute #) 0.38 (0.0-1.3); Monocytes % 14.4 % (0.0-12.0); Red Blood Count 3.57 M/mm3 (4.1-5.6); Red Cell Distribution Width 13.7 % (11.5-14.0); White Blood Count 2.6 K/mm3 (4.0-10.5)
[2018-11-16 06:54] LABS: ALBUMIN 3.4 g/dL (3.5-5.0); ALKALINE PHOSPHATASE 364 U/L (38-126); BLOOD UREA NITROGEN 4 mg/dL (9-20); CHLORIDE 93 mmol/L (98-107); Calcium 7.8 mg/dL (8.4-10.2); Carbon Dioxide 28 mmol/L (22-30); Glucose 113 mg/dL (74-106); SGOT/AST 120 U/L (17-59); SGPT/ALT 25 U/L (0-50); SODIUM 138 mmol/L (137-145); Total Protein 7.8 g/dL (6.3-8.2)
[2018-11-16 06:57] LABS: Potassium 2.7 mmol/L (3.5-5.1)
[2018-11-16] MEDS ORDERED: Klor Con 10 MEQ PO ONE ×2 (06:58→07:07)
[2018-11-16] MEDS ORDERED: POTASSIUM CHLORIDE 20 mEq IN WATER 100ML 20 MEQ/100 ML BAG IV ONE (06:59)
[2018-11-16] MEDS ORDERED: Sodium Chloride 0.9% 1000 ML 1,000 ML IV SCH (07:00)
[2018-11-16 07:04] LABS: Appearance CLEAR (CLEAR); Bilirubin NEGATIVE (NEGATIVE); Blood NEGATIVE Ery/ul (0-5); Glucose NEGATIVE (NEGATIVE); Ketones NEGATIVE (NEGATIVE); Leukocyte Esterase NEGATIVE (NEGATIVE); Nitrite NEGATIVE (NEGATIVE); Protein,Urine Dip NEGATIVE (Negative); Specific Gravity 1.005 (1.005-1.025); Urobilinogen NEGATIVE mg/dL (0-1)
[2018-11-16 07:07] LABS: Platelet Count 60 K/mm3 (150-450)
[2018-11-16] MEDS ORDERED: Sodium Chloride 0.9% 1000 ML 1,000 ML ONE (07:07)
[2018-11-16] MEDS ORDERED: POTASSIUM CHLORIDE 20 mEq IN WATER 100ML 100 ML IV ONE (07:07)
[2018-11-16] MEDS ORDERED: Zofran 4 MG/2 ML VIAL IV ONE (07:31)
[2018-11-16] MEDS ORDERED: Ativan 2 MG/1 ML VIAL IV ONE (07:31)
[2018-11-16] MEDS ORDERED: Zofran 4 MG/2 ML VIAL ONE (07:40)
[2018-11-16] MEDS ORDERED: Ativan 2 MG/1 ML VIAL ONE (07:41)
[2018-11-16] MEDS ORDERED: Magnesium 1 Gm / 100 Ml D5W*** 100 ML IV ONE ×2 (09:05→09:41)
[2018-11-16] MEDS: Magnesium 1 Gm / 100 Ml D5W*** 100 ML IV SCH ×2 (09:07→09:41)
[2018-11-16 11:21] LABS: ALBUMIN 2.9 g/dL (3.5-5.0); ALKALINE PHOSPHATASE 282 U/L (38-126); ANION GAP 14.9 MEQ/L (5-15); BLOOD UREA NITROGEN 3 mg/dL (9-20); CHLORIDE 97 mmol/L (98-107); Calcium 7.7 mg/dL (8.4-10.2); Carbon Dioxide 30 mmol/L (22-30); Creatinine 1 0.58 mg/dL (0.66-1.25); Glucose 92 mg/dL (74-106); MAGNESIUM 2.2 mg/dL (1.6-2.3); Potassium 3.2 mmol/L (3.5-5.1); SGOT/AST 101 U/L (17-59); SGPT/ALT 23 U/L (0-50); SODIUM 140 mmol/L (137-145); Total Protein 6.9 g/dL (6.3-8.2)
[2018-11-16 12:06] VITALS: BP 100/70; PULSE 99; O2SAT 98
== END 2018-11-16 12:16 | disposition home or self-care (01) ==
LOC: ED 06:06
DX: N40.1 Benign prostatic hyperplasia with lower urinary tract symptoms (principal); R33.8 Other retention of urine; C18.9 Malignant neoplasm of colon, unspecified; C73 Malignant neoplasm of thyroid gland; Z93.3 Colostomy status; Z79.899 Other long term (current) drug therapy; Z86.73 Personal history of transient ischemic attack (TIA), and cerebral infarction without residual deficits; K21.9 Gastro-esophageal reflux disease without esophagitis; F41.8 Other specified anxiety disorders
CPT/HCPCS: 36000; 36415; 80053; 81001; 83735; 85025; 96360; 96361; 96365; 96366; 96367; 96374; 96375; 99284; G0480; 80307; J1642; J2060; J2405; J3475; J3480; A9270-GY

== ENCOUNTER 2018-11-18 10:51 | Emergency (ER) | payer OTHER ==
[2018-11-18] MEDS ORDERED: Sodium Chloride 0.9% 1000 ML 1,000 ML IV STA (11:14)
[2018-11-18] MEDS ORDERED: Zofran 4 MG/2 ML VIAL IV ONE ×2 (11:14→13:42)
[2018-11-18] MEDS ORDERED: ANTIVERT 25 MG PO ONE (11:14)
[2018-11-18] MEDS ORDERED: Neurontin 400 MG PO STA (11:15)
[2018-11-18] MEDS ORDERED: Sodium Chloride 0.9% 1000 ML 1,000 ML ONE (11:18)
[2018-11-18] MEDS ORDERED: ANTIVERT 25 MG ONE ×2 (11:18→11:40)
[2018-11-18] MEDS ORDERED: Zofran 4 MG/2 ML VIAL ONE ×2 (11:18→13:33)
[2018-11-18 11:43] LABS: Hematocrit 35.3 % (42-50); Hemoglobin 11.9 gm/dl (12.5-18.0); Mean Cell Volume 99.4 fl (78-100); Mean Corpuscular Hemoglobin 33.5 pg (26-32); Mean Corpuscular Hgb Concent. 33.7 g/dl (32-36); Mean Platelet Volume 11.4 fl (6-9.5); Platelet Count 48 K/mm3 (150-450); Red Blood Count 3.55 M/mm3 (4.1-5.6); White Blood Count 2.2 K/mm3 (4.0-10.5)
[2018-11-18 11:44] LABS: ALBUMIN 3.3 g/dL (3.5-5.0); ALKALINE PHOSPHATASE 361 U/L (38-126); ANION GAP 16.8 MEQ/L (5-15); BLOOD UREA NITROGEN 5 mg/dL (9-20); CHLORIDE 97 mmol/L (98-107); Calcium 8.6 mg/dL (8.4-10.2); Carbon Dioxide 26 mmol/L (22-30); Creatinine 1 0.53 mg/dL (0.66-1.25); Glucose 126 mg/dL (74-106); SGOT/AST 106 U/L (17-59); SGPT/ALT 25 U/L (0-50); SODIUM 137 mmol/L (137-145); Total Protein 7.6 g/dL (6.3-8.2)
[2018-11-18] MEDS ORDERED: Klor Con 10 MEQ PO ONE ×2 (11:46→11:49)
[2018-11-18 11:58] LABS: Eosinophil 2 % (0.00-3.0); Lymphocytes 12 % (24-44); Monocyte 2 % (0.0-12.0); Neutrophils 84 % (36.-66.); Total Cells Counted 100
[2018-11-18 11:59] LABS: ANISOCYTOSIS 1+; Platelet Estimate DECREASED (NORMAL); Poikilocytosis 1+; Polychromasia 1+
[2018-11-18 12:14] LABS: Appearance CLEAR (CLEAR); Bilirubin NEGATIVE (NEGATIVE); Blood LARGE Ery/ul (0-5); Glucose NEGATIVE (NEGATIVE); Ketones TRACE (NEGATIVE); Leukocyte Esterase NEGATIVE (NEGATIVE); Mucus SLIGHT /HPF (NEGATIVE); Nitrite NEGATIVE (NEGATIVE); Protein,Urine Dip 100 (Negative); Specific Gravity 1.017 (1.005-1.025); Urobilinogen 2 mg/dL (0-1); WBC 0-2 /HPF (0-5)
[2018-11-18 12:23] LABS: Amphetamine,Urine NEGATIVE (NEGATIVE); Barbiturate,Urine NEGATIVE (NEGATIVE); Benzodiazepine,Urine NEGATIVE (NEGATIVE); Cocaine,Urine NEGATIVE (NEGATIVE); Methadone,Urine NEGATIVE (NEGATIVE); Opiate,Urine NEGATIVE (NEGATIVE); PCP,Urine NEGATIVE (NEGATIVE); THC,Urine NEGATIVE (NEGATIVE)
[2018-11-18] MEDS ORDERED: ATARAX 25 MG PO ONE (12:33)
[2018-11-18] MEDS ORDERED: ATARAX 25 MG ONE (12:38)
[2018-11-18] MEDS ORDERED: Ativan 2 MG/1 ML VIAL ONE (13:33)
[2018-11-18] MEDS ORDERED: Ativan 2 MG/1 ML VIAL IV ONE (13:40)
[2018-11-18 15:01] VITALS: BP 114/81; PULSE 88; O2SAT 98
--- NOTE | 2018-11-18 15:08 | ERPHSYRPT ---
- History of Present Illness Source: patient Exam Limitations: no limitations Patient Subjective Stated Complaint: pt here for dizziness that started this morning at 0600 with tingling in right foot that started an hour ago, co nasuea as well but staes that is normal for him. pt states he had fc placed here yesterday because he was unable to void Triage Nursing Assessment: pt alert, resp easy, skin w/d. pt skin pale, ,has port to chest,abd soft, no edema . pt has colostomy bag in place Physician History: Pt is a 53 y/o male that presented to the ER with complains of dizziness, vertigo and nausea. Pt states, he woke up today and had a feeling of dizziness with the whole room spinning around him. Pt felt nausiated and came to the ER. Pt denies F/C/S. No headache. He complains of parasthesia in his R foot, and he states, that he is still on chemo and radiation for his colon CA. Pt denies SOB or cough. No abdominal pain. There is ostomy present, that works well. Timing/Duration: today Severity: mild Deficits: off balance Baseline/Normal Cognition: alert oriented x 3 Current Cognition: alert oriented x 3 Baseline Gait: walks w/o assistance Associated Symptoms: nausea, vomiting, other (vertigo) Allergies/Adverse Reactions: iodine Allergy (Severe, Verified 11/18/18 11:03) Tightness of Throat shellfish derived Allergy (Severe, Verified 11/18/18 11:03) Difficulty Breathing Shellfish *RETIRED-11/14/12 [Shellfish] Allergy (Verified 11/18/18 11:03) Tightness of Throat morphine Adverse Reaction (Verified 11/18/18 11:03) Itching Home Medications: Ferrous Sulfate [Feosol] 325 mg PO DAILY 08/25/17 [History] Fluoxetine HCl 20 mg [Prozac 20 MG] 20 mg PO DAILY 08/25/17 [History] Lorazepam [Ativan] 2 mg PO Q6H PRN PRN 08/25/17 [History] Omeprazole 20 MG [Prilosec 20 mg] 20 mg PO DAILY 08/25/17 [History] Hydrocodone/Acetaminophen [[place] 5-325 Tablet] 1 each PO BIDPRN PRN MDD 6 [History] Magnesium Oxide 400 mg [Mag-Ox 400] 400 mg PO BID 11/27/17 [History] Ondansetron [Zofran Odt] 8 mg PO BID 11/27/17 [History] Tamsulosin HCl 0.4 mg [Flomax 0.4 MG] 0.4 mg PO DAILY 11/27/17 [History] Hx Tetanus, Diphtheria Vaccination/Date Given: Yes Hx Influenza Vaccination/Date Given: Yes Hx Pneumococcal Vaccination/Date Given: Yes Immunizations Up to Date: Yes - Review of Systems Constitutional: No Fever, No Chills Eyes: No Symptoms Ears, Nose, & Throat: No Symptoms Respiratory: No Cough, No Dyspnea Cardiac: No Chest Pain, No Edema, No Syncope Abdominal/Gastrointestinal: Nausea, Vomiting, No Abdominal Pain, No Diarrhea Genitourinary Symptoms: No Dysuria Musculoskeletal: No Back Pain, No Neck Pain Neurological: Dizziness, Parasthesia Endocrine: No Symptoms - Past Medical History Pertinent Past Medical History: Yes Neurological History: Stroke ENT History: No Pertinent History Cardiac History: Other Respiratory History: No Pertinent History, Other Endocrine Medical History: Thyroid Cancer Musculoskeletal History: Fractures GI Medical History: Colorectal Cancer, GERD, GI Bleed, Pancreatitis, Other History: No Pertinent History Psycho-Social History: Anxiety, Depression Male Reproductive Disorders: No Pertinent History Other Medical History: 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 Hx of crushed trachea. Hx Cardiac arrest during surgery in 08-05-12. Pt no longer follows up with [facility] strategist. Pt states " my heart stopped because my varicees burst and I bleed out.". recent fracture to left hand due to fall, unsplinted but still swollen and sore. - Past Surgical History Past Surgical History: Yes Neuro Surgical History: No Pertinent History Cardiac: No Pertinent History, Vascular Surgery Respiratory: Other Gastrointestinal: Cholecystectomy, Colon Resection Genitourinary: No Pertinent History Musculoskeletal: No Pertinent History Male Surgical History: No Pertinent History Other Surgical History: Left knee scope; trach placement in 2012 from ulcers noted on throat, states (25 surgeries on throat)[id number]. colon polyp removal , multiple colonoscopies. cvl port placed. colon resection with colostomy december 2017 - Social History Smoking Status: Never smoker Exposure to second hand smoke: No Drug Use: none Patient Lives Alone: Yes - Nursing Vital Signs Nursing Vital Signs: Initial Vital Signs Temperature 97.3 F 11/18/18 10:53 Pulse Rate 100 H 11/18/18 10:53 Respiratory Rate 16 11/18/18 10:53 Blood Pressure 128/91 11/18/18 10:53 O2 Sat by Pulse Oximetry 100 11/18/18 10:53 Pain Scale Pain Intensity 4 - Mandy Coma Scale Best Eye Response ([place]): (4) open spontaneously Best Verbal Response ([place]): (5) oriented Best Motor Response ([place]andy): (6) obeys commands Mandy Total: 15 - Physical Exam General Appearance: mild distress Eye Exam: bilateral eye: normal inspection, PERRL, EOMI Ears, Nose, Throat Exam: normal ENT inspection Neck Exam: normal inspection, non-tender, supple Respiratory: normal breath sounds, lungs clear, airway intact, No respiratory distress Cardiovascular: regular rate/rhythm, No edema Gastrointestinal: soft, other (ostomy of the L mid abdomen, functioning well.), No tenderness, No distention Extremity Exam: normal inspection, No pedal edema Mental Status: alert, oriented x 3 host and hostess Exam: normal speech, PERRL, tongue midline Coordination/Gait: normal gait Motor/Sensory: no motor deficit, no sensory deficit SpO2 Interpretation: normal SpO2: 98 O2 Delivery: Room Air - Course Nursing assessment & vital signs reviewed: Yes Ordered Tests: Active Orders 24 hr Category Date Time Status IV Insertion STAT Care 11/18/18 11:41 Active Orthostatic Vital Signs STAT Care 11/18/18 11:14 Active CBC W DIFF Stat Lab 11/18/18 11:34 Completed CMP Stat Lab 11/18/18 11:34 Completed CULTURE,URINE Stat Lab 11/18/18 12:00 Received Manual Differential NC Stat Lab 11/18/18 11:34 Completed UA W/RFX UR CULTURE Stat Lab 11/18/18 12:00 Completed Urine Triage Profile Stat Lab 11/18/18 12:00 Completed Medication Summary Discontinued Medications Generic Name Dose Route Start Last Admin Trade Name Freq PRN Reason Stop Dose Admin Gabapentin 400 mg 11/18/18 11:15 11/18/18 11:39 Neurontin 400 Mg PO 11/18/18 11:16 400 mg ONCE STA Administration Hydroxyzine HCl 25 mg 11/18/18 12:33 11/18/18 12:39 Atarax 25 Mg PO 11/18/18 12:34 25 mg STAT ONE Administration Hydroxyzine HCl Confirm 11/18/18 12:38 Atarax 25 Mg Administered 11/18/18 12:39 Dose 25 mg .ROUTE .STK-MED ONE Sodium Chloride 1,000 mls @ 999 mls/hr 11/18/18 11:14 11/18/18 14:17 Sodium Chloride 0.9% 1000 Ml IV 11/18/18 12:14 Infused .Q1H1M STA Infusion Sodium Chloride Confirm 11/18/18 11:18 Sodium Chloride 0.9% 1000 Ml Administered 11/18/18 11:19 Dose 1,000 mls @ ud .ROUTE .STK-MED ONE Lorazepam Confirm 11/18/18 13:33 Ativan 2 Mg/1 Ml Vial Administered 11/18/18 13:34 Dose 2 mg .ROUTE .STK-MED ONE Lorazepam 1 mg 11/18/18 13:40 11/18/18 13:43 Ativan 2 Mg/1 Ml Vial IV 11/18/18 13:41 1 mg STAT ONE Administration Meclizine HCl 50 mg 11/18/18 11:14 11/18/18 11:39 Antivert 25 Mg PO 11/18/18 11:15 50 mg STAT ONE Administration Meclizine HCl Confirm 11/18/18 11:18 Antivert 25 Mg Administered 11/18/18 11:19 Dose 25 mg .ROUTE .STK-MED ONE Meclizine HCl Confirm 11/18/18 11:40 Antivert 25 Mg Administered 11/18/18 11:41 Dose 25 mg .ROUTE .STK-MED ONE Ondansetron HCl 4 mg 11/18/18 11:14 11/18/18 11:39 Zofran 4 Mg/2 Ml Vial IV 11/18/18 11:15 4 mg STAT ONE Administration Ondansetron HCl Confirm 11/18/18 11:18 Zofran 4 Mg/2 Ml Vial Administered 11/18/18 11:19 Dose 4 mg .ROUTE .STK-MED ONE Ondansetron HCl Confirm 11/18/18 13:33 Zofran 4 Mg/2 Ml Vial Administered 11/18/18 13:34 Dose 4 mg .ROUTE .STK-MED ONE Ondansetron HCl 4 mg 11/18/18 13:42 11/18/18 13:44 Zofran 4 Mg/2 Ml Vial IV 11/18/18 13:43 4 mg STAT ONE Administration Potassium Chloride 40 meq 11/18/18 11:46 11/18/18 12:00 Klor Con 10 Meq PO 11/18/18 11:47 40 meq STAT ONE Administration Potassium Chloride Confirm 11/18/18 11:49 Klor Con 10 Meq Administered 11/18/18 11:50 Dose 40 meq PO .STK-MED ONE Lab/Rad Data: Laboratory Result Diagrams 11/18/18 11:34 11/18/18 11:34 Laboratory Results 11/18/18 11/18/18 11/18/18 Range/Units 12:00 12:00 11:34 WBC (4.0-10.5) K/mm3 RBC (4.1-5.6) M/mm3 Hgb (12.5-18.0) gm/dl Hct (42-50) % MCV (78-100) fl MCH (26-32) pg MCHC (32-36) g/dl RDW (11.5-14.0) % Plt Count (150-450) K/mm3 MPV (6-9.5) fl Segmented Neutrophils (36.-66.) % Lymphocytes (Manual) (24-44) % Monocytes (Manual) (0.0-12.0) % Eosinophils (Manual) (0.00-3.0) % Platelet Estimate (NORMAL) RBC Morphology Polychromasia Poikilocytosis Anisocytosis Sodium 137 (137-145) mmol/L Potassium 3.0 L (3.5-5.1) mmol/L Chloride 97 L (98-107) mmol/L Carbon Dioxide 26 (22-30) mmol/L Anion Gap 16.8 H (5-15) MEQ/L BUN 5 L (9-20) mg/dL Creatinine 0.53 L (0.66-1.25) mg/dL Estimated GFR > 60.0 ML/MIN Glucose 126 H (74-106) mg/dL Calcium 8.6 (8.4-10.2) mg/dL Total Bilirubin 2.30 H (0.2-1.3) mg/dL AST 106 H (17-59) U/L ALT 25 (0-50) U/L Alkaline Phosphatase 361 H (38-126) U/L Serum Total Protein 7.6 (6.3-8.2) g/dL Albumin 3.3 L (3.5-5.0) g/dL Urine Color JAYJAY (YELLOW) Urine Appearance CLEAR (CLEAR) Urine pH 6.0 (5-6) Ur Specific [place] 1.017 (1.005-1.025) Urine Protein 100 (Negative) Urine Ketones TRACE (NEGATIVE) Urine Blood LARGE (0-5) Steve/ul Urine Nitrite NEGATIVE (NEGATIVE) Urine Bilirubin NEGATIVE (NEGATIVE) Urine Urobilinogen 2 (0-1) mg/dL Ur Leukocyte Esterase NEGATIVE (NEGATIVE) Urine WBC (Auto) 0-2 (0-5) /HPF Urine RBC (Auto) 6-10 (0-2) /HPF Urine Mucus (Auto) SLIGHT (NEGATIVE) /HPF Urine Culture Reflexed YES (NO) Urine Glucose NEGATIVE (NEGATIVE) mg/dL Urine Opiates Level NEGATIVE (NEGATIVE) Ur Methadone NEGATIVE (NEGATIVE) Urine Barbiturates NEGATIVE (NEGATIVE) Ur Phencyclidine (PCP) NEGATIVE (NEGATIVE) Urine Amphetamine NEGATIVE (NEGATIVE) U Benzodiazepine Level NEGATIVE (NEGATIVE) Urine Cocaine NEGATIVE (NEGATIVE) Urine Marijuana (THC) NEGATIVE (NEGATIVE) 11/18/18 Range/Units 11:34 WBC 2.2 L (4.0-10.5) K/mm3 RBC 3.55 L (4.1-5.6) M/mm3 Hgb 11.9 L (12.5-18.0) gm/dl Hct 35.3 L (42-50) % MCV 99.4 (78-100) fl MCH 33.5 H (26-32) pg MCHC 33.7 (32-36) g/dl RDW 14.0 (11.5-14.0) % Plt Count 48 L (150-450) K/mm3 MPV 11.4 H (6-9.5) fl Segmented Neutrophils 84 H (36.-66.) % Lymphocytes (Manual) 12 L (24-44) % Monocytes (Manual) 2 (0.0-12.0) % Eosinophils (Manual) 2 (0.00-3.0) % Platelet Estimate DECREASED (NORMAL) RBC Morphology ABNORMAL Polychromasia 1+ Poikilocytosis 1+ Anisocytosis 1+ Sodium (137-145) mmol/L Potassium (3.5-5.1) mmol/L Chloride (98-107) mmol/L Carbon Dioxide (22-30) mmol/L Anion Gap (5-15) MEQ/L BUN (9-20) mg/dL Creatinine (0.66-1.25) mg/dL Estimated GFR ML/MIN Glucose (74-106) mg/dL Calcium (8.4-10.2) mg/dL Total Bilirubin (0.2-1.3) mg/dL AST (17-59) U/L ALT (0-50) U/L Alkaline Phosphatase (38-126) U/L Serum Total Protein (6.3-8.2) g/dL Albumin (3.5-5.0) g/dL Urine Color (YELLOW) Urine Appearance (CLEAR) Urine pH (5-6) Ur Specific [place] (1.005-1.025) Urine Protein (Negative) Urine Ketones (NEGATIVE) Urine Blood (0-5) Steve/ul Urine Nitrite (NEGATIVE) Urine Bilirubin (NEGATIVE) Urine Urobilinogen (0-1) mg/dL Ur Leukocyte Esterase (NEGATIVE) Urine WBC (Auto) (0-5) /HPF Urine RBC (Auto) (0-2) /HPF Urine Mucus (Auto) (NEGATIVE) /HPF Urine Culture Reflexed (NO) Urine Glucose (NEGATIVE) mg/dL Urine Opiates Level (NEGATIVE) Ur Methadone (NEGATIVE) Urine Barbiturates (NEGATIVE) Ur Phencyclidine (PCP) (NEGATIVE) Urine Amphetamine (NEGATIVE) U Benzodiazepine Level (NEGATIVE) Urine Cocaine (NEGATIVE) Urine Marijuana (THC) (NEGATIVE) - Progress Progress: improved Progress Note: 11/18/18 15:10 Pt was given Meclizine, Gabapentine and Zofran. IVF were given. Vitals are normal. UA and UDS were normal. As pt had colon CA, his alk phos is elevated. Pt did not improve, and he was given another dose of Zofran, and a dose of ATivan 1mg IV. Pt is feeling better and is cleared for d/c. Pt should f/u with his PCP tomorrow, for a refil on his Rx, including controls. Discussed with : Ari Will see patient in: office Counseled pt/family regarding: need for follow-up - Departure Departure Disposition: Home Clinical Impression: Dizziness Condition: Stable Critical Care Time: No Referrals: CHANDRAKANT SCHAFFER [Primary Care Provider] - Additional Instructions: F/U with PCP for meds refills.
== END 2018-11-18 15:34 | disposition home or self-care (01) ==
LOC: ED 10:51
DX: R42 Dizziness and giddiness (principal); C18.9 Malignant neoplasm of colon, unspecified; Z79.899 Other long term (current) drug therapy; Z90.49 Acquired absence of other specified parts of digestive tract; K21.9 Gastro-esophageal reflux disease without esophagitis; F41.9 Anxiety disorder, unspecified; F32.9 Major depressive disorder, single episode, unspecified
CPT/HCPCS: 36415; 80053; 80307; 81001; 85025; 87086; 96360; 96374; 96375; 96376; 99284; J1642; J2060; J2405; A9270-GY

== ENCOUNTER 2018-11-29 06:20 | Day surgery (SDC) | payer OTHER ==
--- NOTE | 2018-11-27 14:54 | HP ---
DATE OF SURGERY: 11/29/2018 ADMISSION DIAGNOSIS: ANTICIPATED PROCEDURE: Colonoscopy through stoma. HISTORY OF PRESENT ILLNESS: The patient presents for a yearly follow up through stoma. He has had his rectum removed. He has had very aggressive polyps throughout most of his remaining colon. PAST MEDICAL HISTORY: ALLERGIES: IODINE. MORPHINE. SHELLFISH. MEDICATIONS: Prozac. Prilosec. PAST SURGICAL HISTORY: Abdominal peritoneal resection. Gallbladder surgery. Perforated esophagus. Tracheal fistula. SOCIAL HISTORY: Smokeless tobacco. ETOH none. FAMILY HISTORY: Negative. PHYSICAL EXAMINATION: VITAL SIGNS: Normal. CHEST: Clear. COR: Regular. ABDOMEN: Ostomy present. IMPRESSION: Follow up of the rest of the colon per ostomy.
[2018-11-29] MEDS ORDERED: DIPRIVAN 200 MG/20 ML IV ONE (06:21)
[2018-11-29] MEDS ORDERED: Ketamine HCl 50 MG/ML IV ONE (06:21)
[2018-11-29 07:14] LABS: ANION GAP 15.5 MEQ/L (5-15); CHLORIDE 104 mmol/L (98-107); Calcium 7.9 mg/dL (8.4-10.2); Carbon Dioxide 26 mmol/L (22-30); Creatinine 1 0.47 mg/dL (0.66-1.25); Glucose 88 mg/dL (74-106); Potassium 3.5 mmol/L (3.5-5.1); SODIUM 142 mmol/L (137-145)
[2018-11-29 07:17] LABS: BLOOD UREA NITROGEN < 2 mg/dL (9-20)
[2018-11-29 07:46] LABS: BASOPHIL % 0.5 % (0.0-0.4); Basophil (Absolute #) 0.01 (0-0.4); Eosinophil % 2.9 % (0.00-5.0); Eosinophil (Absolute #) 0.06 (0-0.5); Granulocyte Absolute (ANC) 1.38 (1.4-6.9); Granulocytes % 65.7 % (36.0-66.0); Hematocrit 34.6 % (42-50); Hemoglobin 11.7 gm/dl (12.5-18.0); Lymphocyte (Absolute #) 0.32 (1.0-4.6); Lymphocytes % 15.2 % (24.0-44.0); Mean Cell Volume 100.3 fl (78-100); Mean Corpuscular Hemoglobin 33.9 pg (26-32); Mean Corpuscular Hgb Concent. 33.8 g/dl (32-36); Mean Platelet Volume 11.1 fl (6-9.5); Monocyte (Absolute #) 0.33 (0.0-1.3); Monocytes % 15.7 % (0.0-12.0); Platelet Count 95 K/mm3 (150-450); Red Blood Count 3.45 M/mm3 (4.1-5.6); Red Cell Distribution Width 14.5 % (11.5-14.0); White Blood Count 2.1 K/mm3 (4.0-10.5)
[2018-11-29 09:13] LABS: Slide Review 1 YES
[2018-11-29 10:08] VITALS: O2SAT 97
[2018-11-29] MEDS ORDERED: Sodium Chloride 0.9% 10 ML FLUSH Syringe PORT FLUSH PRN (10:25)
[2018-11-29 10:50] VITALS: BP 130/95; PULSE 77
--- NOTE | 2018-11-29 11:14 | OP ---
SURGERY DATE/TIME: 11/29/2018911 PREOPERATIVE DIAGNOSIS: Follow up of adenomatous syndrome with cancer. POSTOPERATIVE DIAGNOSIS: Two polyps. PROCEDURE: Colonoscopy complete to cecum with hot snare polypectomy x2, splenic and descending sigmoid. SURGEON: Aleksandar Doe M.D. ANESTHESIA: MAC. COMPLICATIONS: None. CONDITION: Stable. INDICATION: A patient requiring evaluation. DESCRIPTION OF PROCEDURE: Taken to endoscopy. MAC sedation provided. Scope introduced through the ostomy. There was just very mild prolapse. It was advanced to the cecum. Base of cecum, ileocecal valve was normal. Right side normal. Coming over to the spleen there was a bilobed polyp and it was taken with hot snare to extinction. Coming down in the descending there was 8 mm taken to extinction. Scope withdrawn. The patient tolerated the procedure satisfactorily. Follow up six months to a year.
== END 2018-11-29 10:40 | disposition home or self-care (01) ==
LOC: SDC 06:20
PROVIDERS: ATTEND Surgery
DX: Z48.815 Encounter for surgical aftercare following surgery on the digestive system (principal); Z85.048 Personal history of other malignant neoplasm of rectum, rectosigmoid junction, and anus; D12.6 Benign neoplasm of colon, unspecified
CPT/HCPCS: 36415; 44394; 80048; 85025; G0480; 80307; J1642; J2704

== ENCOUNTER 2019-01-27 08:58 | Emergency (ER) | payer OTHER ==
[2019-01-27] MEDS ORDERED: Sodium Chloride 0.9% 1000 ML 1,000 ML IV SCH (09:30)
--- NOTE | 2019-01-27 09:38 | ERPHSYRPT ---
- History of Present Illness Time Seen by Provider: 01/27/19 09:34 Historian: patient Exam Limitations: no limitations Patient Subjective Stated Complaint: Needs paracentesis done, vomiting, can not urinate Triage Nursing Assessment: Pt walked into the ER with an unsteady gait holding his stomach, last urination 3 days ago, requires a paracentesis, last one done 2wks and 2 days ago, stomach is fully distended, tachycardic, pulses normal, tremorsdaily drinker and last drink Monday, states he's withdrawling from not having Ativan Physician History: 54-year-old white male with history of CVA, thyroid cancer, fractures, colorectal cancer, GERD, GI bleed, pancreatitis, anxiety, depression, esophageal varices, cardiac arrest, fractures of the left hand Patient arrives stating that he's been vomiting for about 3 days she states she' s been having abdominal pain for 3 days he states he's not able to take his Ativan feels like he is running out of Ativan. He states he cannot urinate Past surgical history includes vascular surgery, cholecystectomy, colon resection, left knee scope, tracheostomy 2013 secondary to ulcers in his throat , multiple throat surgeries, colon polyps removed, colon resection, colonoscopy , CVA port Social history positive tobacco use Timing/Duration: day(s) (3 days) Activities at Onset: none Quality: cramping Abdominal Pain Onset Location: generalized abdomen Pain Radiation: no radiation Severity of Pain-Max: moderate Severity of Pain-Current: moderate Modifying Factors: Improves With: other (patient states he hasn't been able to take his Ativan because of vomiting) Associated Symptoms: nausea, vomiting, No back, No chest pain, No diaphoresis, No diarrhea, No fever/chills, No fatigue, No headache, No heartburn, No loss of appetite, No neck pain, No rash, No shortness of breath, No syncope, No testicular pain Allergies/Adverse Reactions: iodine Allergy (Severe, Verified 01/27/19 09:22) Tightness of Throat shellfish derived Allergy (Severe, Verified 01/27/19 09:22) Difficulty Breathing Shellfish *RETIRED-11/14/12 [Shellfish] Allergy (Verified 01/27/19 09:22) Tightness of Throat morphine Adverse Reaction (Verified 01/27/19 09:22) Itching Home Medications: Ferrous Sulfate [Feosol] 325 mg PO DAILY 08/25/17 [History] Fluoxetine HCl 20 mg [Prozac 20 MG] 10 mg PO DAILY 08/25/17 [History] Lorazepam [Ativan] 2 mg PO Q6H PRN PRN 08/25/17 [History] Magnesium Oxide 400 mg [Mag-Ox 400] 400 mg PO BID 11/27/17 [History] Tamsulosin HCl 0.4 mg [Flomax 0.4 MG] 0.4 mg PO DAILY 11/27/17 [History] Hx Tetanus, Diphtheria Vaccination/Date Given: Yes Hx Influenza Vaccination/Date Given: Yes Hx Pneumococcal Vaccination/Date Given: Yes - Review of Systems Constitutional: No Fever, No Chills Eyes: No Symptoms Ears, Nose, & Throat: No Symptoms Respiratory: No Cough, No Dyspnea Cardiac: No Chest Pain, No Edema, No Syncope Abdominal/Gastrointestinal: Abdominal Pain, Nausea, Vomiting, No Diarrhea, No Constipation, No Hematemesis, No Hematochezia, No Melena, No Dysphagia, No Appetite Changes Genitourinary Symptoms: No Dysuria Musculoskeletal: No Back Pain, No Neck Pain Skin: No Rash Neurological: No Dizziness, No Focal Weakness, No Sensory Changes Psychological: Other (states unable to take his Ativan) Endocrine: No Symptoms All Other Systems: Reviewed and Negative - Past Medical History Pertinent Past Medical History: Yes Neurological History: Stroke ENT History: No Pertinent History Cardiac History: Other Respiratory History: No Pertinent History, Other Endocrine Medical History: Thyroid Cancer Musculoskeletal History: Fractures GI Medical History: Colorectal Cancer, GERD, GI Bleed, Pancreatitis, Other History: No Pertinent History Psycho-Social History: Anxiety, Depression Male Reproductive Disorders: No Pertinent History Other Medical History: 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 Hx of crushed trachea. Hx Cardiac arrest during surgery in 08-05-12. 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 Pt states " my heart stopped because my varicees burst and I bleed out.". recent fracture to left hand due to fall, unsplinted but still swollen and sore. paracentesis - Past Surgical History Past Surgical History: Yes Neuro Surgical History: No Pertinent History Cardiac: No Pertinent History, Vascular Surgery Respiratory: Other Gastrointestinal: Cholecystectomy, Colon Resection Genitourinary: No Pertinent History Musculoskeletal: No Pertinent History Male Surgical History: No Pertinent History Other Surgical History: Left knee scope; trach placement in 2012 from ulcers noted on throat, states (25 surgeries on throat)[id number]. colon polyp removal , multiple colonoscopies. cvl port placed. colon resection with colostomy december 2017 - Social History Smoking Status: Never smoker Exposure to second hand smoke: No Drug Use: none Patient Lives Alone: Yes - Nursing Vital Signs Nursing Vital Signs: Initial Vital Signs Temperature 98.1 F 01/27/19 09:09 Pulse Rate 133 H 01/27/19 09:09 Blood Pressure 127/95 01/27/19 09:09 O2 Sat by Pulse Oximetry 97 01/27/19 09:09 Pain Scale Pain Intensity 6 - Physical Exam General Appearance: mild distress, alert Eye Exam: PERRL/EOMI, eyes nml inspection Ears, Nose, Throat Exam: normal ENT inspection, pharynx normal, moist mucous membranes Neck Exam: normal inspection Respiratory Exam: normal breath sounds, lungs clear, No respiratory distress Cardiovascular Exam: tachycardia, capillary refill <2 sec Gastrointestinal/Abdomen Exam: normal bowel sounds, tenderness (mild diffuse tenderness), distention (mild distention), other (mildly firm) Back Exam: normal inspection, normal range of motion, No CVA tenderness, No vertebral tenderness Extremity Exam: normal inspection, normal range of motion, pelvis stable Neurologic Exam: alert, oriented x 3, cooperative, 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 Massive amount of ascites throughout the abdomen and pelvis, name. 2. Diffuse fatty infiltration of the liver 3. Partial evaluation of the right breast suggests gynecomastia) Ordered Tests: Active Orders 24 hr Category Date Time Status EKG-ER Only STAT Care 01/27/19 09:32 Active IV Insertion STAT Care 01/27/19 09:30 Active ABDOMEN AND PELVIS W/0 CONTRAS [CT] Stat Exams 01/27/19 10:07 Taken AMYLASE Stat Lab 01/27/19 10:00 Completed CBC W DIFF Stat Lab 01/27/19 10:00 Completed CMP Stat Lab 01/27/19 10:00 Completed CULTURE,URINE Stat Lab 01/27/19 10:40 Received ETHYL ALCOHOL Stat Lab 01/27/19 10:00 Completed LIPASE Stat Lab 01/27/19 10:00 Completed UA W/RFX UR CULTURE Stat Lab 01/27/19 10:40 Completed Urine Triage Profile Stat Lab 01/27/19 10:40 Completed Medication Summary Generic Name Dose Route Start Last Admin Trade Name Freq PRN Reason Stop Dose Admin Sodium Chloride 1,000 mls @ 100 mls/hr 01/27/19 09:30 01/27/19 10:16 Sodium Chloride 0.9% 1000 Ml IV 02/26/19 09:29 100 mls/hr .Q10H LYNETTE Administration Discontinued Medications Generic Name Dose Route Start Last Admin Trade Name Freq PRN Reason Stop Dose Admin Lorazepam 1 mg 01/27/19 09:39 01/27/19 10:16 Ativan 2 Mg/1 Ml Vial IV 01/27/19 09:40 1 mg STAT ONE Administration Lorazepam Confirm 01/27/19 10:02 Ativan 2 Mg/1 Ml Vial Administered 01/27/19 10:03 Dose 2 mg .ROUTE .STK-MED ONE Ondansetron HCl 4 mg 01/27/19 09:39 01/27/19 10:16 Zofran 4 Mg/2 Ml Vial IV 01/27/19 09:40 4 mg STAT ONE Administration Ondansetron HCl Confirm 01/27/19 10:01 Zofran 4 Mg/2 Ml Vial Administered 01/27/19 10:02 Dose 4 mg .ROUTE .STK-MED ONE Lab/Rad Data: Laboratory Result Diagrams 01/27/19 10:00 01/27/19 10:00 Laboratory Results 01/27/19 01/27/19 01/27/19 Range/Units 10:40 10:40 10:00 WBC (4.0-10.5) K/mm3 RBC (4.1-5.6) M/mm3 Hgb (12.5-18.0) gm/dl Hct (42-50) % MCV (78-100) fl MCH (26-32) pg MCHC (32-36) g/dl RDW (11.5-14.0) % Plt Count (150-450) K/mm3 MPV (6-9.5) fl Gran % (36.0-66.0) % Eos # (Auto) (0-0.5) Absolute Lymphs (auto) (1.0-4.6) Absolute Monos (auto) (0.0-1.3) Lymphocytes % (24.0-44.0) % Monocytes % (0.0-12.0) % Eosinophils % (0.00-5.0) % Basophils % (0.0-0.4) % Absolute Granulocytes (1.4-6.9) Basophils # (0-0.4) Sodium (137-145) mmol/L Potassium (3.5-5.1) mmol/L Chloride (98-107) mmol/L Carbon Dioxide (22-30) mmol/L Anion Gap (5-15) MEQ/L BUN (9-20) mg/dL Creatinine (0.66-1.25) mg/dL Estimated GFR ML/MIN Glucose (74-106) mg/dL Calcium (8.4-10.2) mg/dL Total Bilirubin (0.2-1.3) mg/dL AST (17-59) U/L ALT (0-50) U/L Alkaline Phosphatase (38-126) U/L Serum Total Protein (6.3-8.2) g/dL Albumin (3.5-5.0) g/dL Amylase (30-110) U/L Lipase (23-300) U/L Urine Color DARK YELLOW (YELLOW) Urine Appearance CLEAR (CLEAR) Urine pH 6.0 (5-6) Ur Specific [place] 1.004 (1.005-1.025) Urine Protein NEGATIVE (Negative) Urine Ketones NEGATIVE (NEGATIVE) Urine Blood SMALL (0-5) Steve/ul Urine Nitrite NEGATIVE (NEGATIVE) Urine Bilirubin NEGATIVE (NEGATIVE) Urine Urobilinogen 2 (0-1) mg/dL Ur Leukocyte Esterase NEGATIVE (NEGATIVE) Urine WBC (Auto) NONE (0-5) /HPF Urine RBC (Auto) NONE (0-2) /HPF U Epithel Cells (Auto) NONE (FEW) /HPF Urine Bacteria (Auto) NONE (NEGATIVE) /HPF Urine Culture Reflexed ORDERED SEPARATELY (NO) Urine Glucose NEGATIVE (NEGATIVE) mg/dL Urine Opiates Level NEGATIVE (NEGATIVE) Ur Methadone NEGATIVE (NEGATIVE) Urine Barbiturates NEGATIVE (NEGATIVE) Ur Phencyclidine (PCP) NEGATIVE (NEGATIVE) Urine Amphetamine NEGATIVE (NEGATIVE) U Benzodiazepine Level NEGATIVE (NEGATIVE) Urine Cocaine NEGATIVE (NEGATIVE) Urine Marijuana (THC) NEGATIVE (NEGATIVE) Ethyl Alcohol 242 H (0-10) mg/dL 01/27/19 01/27/19 Range/Units 10:00 10:00 WBC 3.2 L (4.0-10.5) K/mm3 RBC 3.23 L (4.1-5.6) M/mm3 Hgb 11.8 L (12.5-18.0) gm/dl Hct 32.7 L (42-50) % MCV 101.2 H (78-100) fl MCH 36.5 H (26-32) pg MCHC 36.1 H (32-36) g/dl RDW 15.0 H (11.5-14.0) % Plt Count 104 L (150-450) K/mm3 MPV 10.4 H (6-9.5) fl Gran % 71.0 H (36.0-66.0) % Eos # (Auto) 0 (0-0.5) Absolute Lymphs (auto) 0.30 L (1.0-4.6) Absolute Monos (auto) 0.60 (0.0-1.3) Lymphocytes % 9.5 L (24.0-44.0) % Monocytes % 18.9 H (0.0-12.0) % Eosinophils % 0.0 (0.00-5.0) % Basophils % 0.6 (0.0-0.4) % Absolute Granulocytes 2.25 (1.4-6.9) Basophils # 0.02 (0-0.4) Sodium 139 (137-145) mmol/L Potassium 3.1 L (3.5-5.1) mmol/L Chloride 104 (98-107) mmol/L Carbon Dioxide 21 L (22-30) mmol/L Anion Gap 16.3 H (5-15) MEQ/L BUN < 2 L (9-20) mg/dL Creatinine 0.40 L (0.66-1.25) mg/dL Estimated GFR > 60.0 ML/MIN Glucose 125 H (74-106) mg/dL Calcium 7.5 L (8.4-10.2) mg/dL Total Bilirubin 3.20 H (0.2-1.3) mg/dL AST 99 H (17-59) U/L ALT 27 (0-50) U/L Alkaline Phosphatase 492 H (38-126) U/L Serum Total Protein 6.9 (6.3-8.2) g/dL Albumin 2.5 L (3.5-5.0) g/dL Amylase 166 H (30-110) U/L Lipase < 10 L (23-300) U/L Urine Color (YELLOW) Urine Appearance (CLEAR) Urine pH (5-6) Ur Specific [place] (1.005-1.025) Urine Protein (Negative) Urine Ketones (NEGATIVE) Urine Blood (0-5) Steve/ul Urine Nitrite (NEGATIVE) Urine Bilirubin (NEGATIVE) Urine Urobilinogen (0-1) mg/dL Ur Leukocyte Esterase (NEGATIVE) Urine WBC (Auto) (0-5) /HPF Urine RBC (Auto) (0-2) /HPF U Epithel Cells (Auto) (FEW) /HPF Urine Bacteria (Auto) (NEGATIVE) /HPF Urine Culture Reflexed (NO) Urine Glucose (NEGATIVE) mg/dL Urine Opiates Level (NEGATIVE) Ur Methadone (NEGATIVE) Urine Barbiturates (NEGATIVE) Ur Phencyclidine (PCP) (NEGATIVE) Urine Amphetamine (NEGATIVE) U Benzodiazepine Level (NEGATIVE) Urine Cocaine (NEGATIVE) Urine Marijuana (THC) (NEGATIVE) Ethyl Alcohol (0-10) mg/dL - Progress Progress: improved Progress Note: 01/27/19 11:45 54-year-old white male with history of CVA, thyroid cancer, fractures, colorectal cancer, GERD, GI bleed, pancreatitis, anxiety, depression, esophageal varices. Patient arrives with complaint of nausea vomiting diffuse abdominal pain. Patient states this is been going on for 3 days. He states he last drank alcohol 3 days ago. On arrival patient with a heart rate of 133 he did state that he was unable to take his Ativan. Patient is given normal saline at 100 mL per hour Ativan 1 mg IV patient's now with a heart rate of 103 beats per minute patient's vitals are stable patient does . Diffuse abdominal tenderness and a distended abdomen mildly firm Patient was CT abdomen remarkable for massive amount of ascites throughout the abdomen and pelvis which is firm diffuse fatty infiltration of the liver Patient with a blood alcohol of 242 patient was chemistry showing sodium 139 potassium 3.1 chloride 104 bicarbonate 21 BUN less than 2 creatinine 0.4 glucose is 125 total of the room and is 3.2 AST is 99 8 ALT is 27 alkaline phosphatase is 492 amylase 166 lipase less than 10 Patient states that all of his specialists are at [facility] I contacted Dr. Miles at [facility] he is accepted the patient for transfer. Impression 1 abdominal pain. 2 alcohol intoxication. 3 Ativan withdrawal. 4 ascites Patient will be be given potassium 40 mEq orally prior to transfer. - Departure Departure Disposition: Transfer ([facility]) Clinical Impression: Ativan withdrawal Abdominal pain Qualifiers: Abdominal location: generalized Qualified Code(s): R10.84 - Generalized abdominal pain Alcohol intoxication Qualifiers: Complication of substance-induced condition: uncomplicated Qualified Code(s): F10.920 - Alcohol use, unspecified with intoxication, uncomplicated Ascites Qualifiers: Ascites type: other type Qualified Code(s): R18.8 - Other ascites Condition: Fair Critical Care Time: No Referrals: CHANDRAKANT SCHAFFER [Primary Care Provider] -
[2019-01-27] MEDS ORDERED: Ativan 2 MG/1 ML VIAL IV ONE (09:39)
[2019-01-27] MEDS ORDERED: Zofran 4 MG/2 ML VIAL IV ONE (09:39)
[2019-01-27] MEDS ORDERED: Zofran 4 MG/2 ML VIAL ONE (10:01)
[2019-01-27] MEDS ORDERED: Ativan 2 MG/1 ML VIAL ONE (10:02)
[2019-01-27] MEDS ORDERED: Sodium Chloride 0.9% 1000 ML 1,000 ML ONE (10:02)
[2019-01-27 10:07] LABS: BASOPHIL % 0.6 % (0.0-0.4); Basophil (Absolute #) 0.02 (0-0.4); Eosinophil (Absolute #) 0 (0-0.5); Granulocyte Absolute (ANC) 2.25 (1.4-6.9); Hematocrit 32.7 % (42-50); Hemoglobin 11.8 gm/dl (12.5-18.0); Lymphocytes % 9.5 % (24.0-44.0); Mean Cell Volume 101.2 fl (78-100); Mean Corpuscular Hemoglobin 36.5 pg (26-32); Mean Corpuscular Hgb Concent. 36.1 g/dl (32-36); Mean Platelet Volume 10.4 fl (6-9.5); Monocytes % 18.9 % (0.0-12.0); Platelet Count 104 K/mm3 (150-450); Red Blood Count 3.23 M/mm3 (4.1-5.6); White Blood Count 3.2 K/mm3 (4.0-10.5)
[2019-01-27 10:17] LABS: ALBUMIN 2.5 g/dL (3.5-5.0); ALKALINE PHOSPHATASE 492 U/L (38-126); AMYLASE 166 U/L (30-110); ANION GAP 16.3 MEQ/L (5-15); CHLORIDE 104 mmol/L (98-107); Calcium 7.5 mg/dL (8.4-10.2); Carbon Dioxide 21 mmol/L (22-30); Glucose 125 mg/dL (74-106); Potassium 3.1 mmol/L (3.5-5.1); SGOT/AST 99 U/L (17-59); SGPT/ALT 27 U/L (0-50); SODIUM 139 mmol/L (137-145); Total Protein 6.9 g/dL (6.3-8.2)
[2019-01-27 10:18] LABS: BLOOD UREA NITROGEN < 2 mg/dL (9-20)
[2019-01-27 11:12] LABS: Appearance CLEAR (CLEAR); Bilirubin NEGATIVE (NEGATIVE); Blood SMALL Ery/ul (0-5); Glucose NEGATIVE (NEGATIVE); Ketones NEGATIVE (NEGATIVE); Leukocyte Esterase NEGATIVE (NEGATIVE); Nitrite NEGATIVE (NEGATIVE); Protein,Urine Dip NEGATIVE (Negative); Specific Gravity 1.004 (1.005-1.025); Urobilinogen 2 mg/dL (0-1)
[2019-01-27 11:19] LABS: Amphetamine,Urine NEGATIVE (NEGATIVE); Barbiturate,Urine NEGATIVE (NEGATIVE); Benzodiazepine,Urine NEGATIVE (NEGATIVE); Cocaine,Urine NEGATIVE (NEGATIVE); Methadone,Urine NEGATIVE (NEGATIVE); Opiate,Urine NEGATIVE (NEGATIVE); PCP,Urine NEGATIVE (NEGATIVE); THC,Urine NEGATIVE (NEGATIVE)
[2019-01-27] MEDS ORDERED: Klor Con 10 MEQ PO ONE ×2 (11:43→11:49)
[2019-01-27 12:16] VITALS: BP 107/88; PULSE 110; O2SAT 99
--- NOTE | 2019-01-27 21:50 | XRAY ---
Indication: Abdomen distention. Nausea and vomiting. History colon, thyroid, and prostate cancer. Multiple contiguous axial images obtained through the abdomen and pelvis without contrast as ordered. Comparison: February 12, 2018. Lung bases are clear. Heart is not enlarged. Stable distal paraesophageal calcified node. Partially visualized right gynecomastia not previously imaged. New large abdomen/pelvic ascites. Noncontrasted stomach and bowel loops appear nonobstructed. Interval sigmoid resection with new left lower quadrant colostomy. Rectal stump appears unremarkable. Fatty liver now appears small/contracted favoring cirrhosis. Grossly stable mesenteric root lymphadenopathy, cholecystectomy, chronic pancreatitis calcifications, and calcified splenic granuloma. [place] catheter empties the bladder. Remaining pancreas, spleen, adrenal glands, kidneys, ureters, bladder, and aorta appear unremarkable for noncontrast exam. Osseous structures again demonstrates old bilateral rib fractures. Impression: 1. New large abdomen/pelvic ascites. 2. Status post sigmoid resection with new left lower quadrant colostomy. 3. Again diffuse fatty liver now appearing small/contracted favoring cirrhosis. 4. Partially visualized right gynecomastia not previously imaged. 5. Grossly stable mesenteric root lymphadenopathy. Comment: Preliminary interpretation was made by [facility] who does not report mesenteric root lymphadenopathy and pancreatitis calcifications. CTDI 16.42
== END 2019-01-27 13:27 | disposition short-term general hospital (02) ==
LOC: ED 08:58
DX: R10.84 Generalized abdominal pain (principal); F10.920 Alcohol use, unspecified with intoxication, uncomplicated; R18.8 Other ascites; F13.239 Sedative, hypnotic or anxiolytic dependence with withdrawal, unspecified; R11.2 Nausea with vomiting, unspecified; Z79.899 Other long term (current) drug therapy
CPT/HCPCS: 36415; 74176; 80053; 80307; 81001; 82150; 83690; 85025; 87086; 93005; 96360; 96361; 96374; 96375; 99285; G0480; J2060; J2405; A9270-GY